=== PATIENT | female | born 1940 | race African-American/Black ===

== ENCOUNTER 2016-10-19 05:13 | Inpatient (IN) | payer MEDICARE, OTHER ==
--- NOTE | ~2016-10-19 | CO ---
Unit #: [id number] #: [id number] Patient: JAILENE KUHN [id number] [facility] [address] [place], [place] [address] [id number] MR#: [id number] NAME: JAILENE KUHN ROOM: 551 Age: 75 Sex: F Admission Date: 10/19/2016 : 1940 Attending Physician: Toby Reyna M.D. Primary Care Physician: Kelly Pelaez M.D. Consultation Date: 10/25/2016 CONSULTATION REPORT REASON FOR CONSULTATION Confusion, agitation. HISTORY OF PRESENT ILLNESS Ms. Jailene Kuhn is a 75-year-old -Burmese female seen on 10/25/2016 at [facility] in room 551. Patient was pleasant, cooperative, seems somewhat anxious, nervous, having some trouble breathing, receiving oxygen through nasal cannula. Patient was lying in the propped-up position. Patient's family was at the bedside. Patient was alert, oriented in time, place and person but having periods of agitation. Patient is also having trouble sleeping but receiving trazodone. Patient was admitted with shortness of air and tachycardia, COPD exacerbation. Patient denied any current suicidal or homicidal ideation, denied any psychotic symptom. PAST PSYCHIATRIC HISTORY Unremarkable except for trouble sleeping. MEDICAL HISTORY AND MEDICATION HISTORY Remarkable for history of COPD, coronary artery disease, hypertension, hyperlipidemia, diabetes type 2, TIA times 2, COPD oxygen dependent, GERD, esophageal stricture. MEDICATIONS Patient is on: 1. Lisinopril 2. Famotidine 3. Diltiazem 4. Metformin 5. Zyrtec 6. Ipratropium bromide 7. Sucralfate 8. Colace 9. Lantus 10. Trazodone 50 mg at bedtime Please refer to the MAR for details. FAMILY HISTORY AND SOCIAL HISTORY Patient reported that she lives by herself and has good support from the family, who lives a block from her. Patient denied any history of abuse or any history of any use of drugs or alcohol. REVIEW OF SYSTEMS Unit #: [id number] #: [id number] Patient: JAILENE KUHN Complete review of system is remarkable for anxiety, agitation. Complete review of systems is as above. MENTAL STATUS EXAMINATION GENERAL APPEARANCE: Patient dressed in hospital attire, receiving oxygen through nasal cannula, lying comfortably, seemed anxious/nervous. ATTENTION SPAN AND CONCENTRATION: Fair. SPEECH: Regular rate. ORIENTATION: Time, place and person. MOOD AND AFFECT: Sad, dysphoric. THOUGHT PROCESS: Coherent. THOUGHT CONTENT: Patient denied any thoughts of harming self or others, but guarded. RECENT AND REMOTE MEMORY: Fair. LANGUAGE: Able to name objects, repeat phrases. FUND OF KNOWLEDGE: Fair. INSIGHT AND JUDGMENT: Fair to slightly impaired. DIAGNOSES 1. Psychiatric a. Major depressive disorder, recurrent, moderate, F33.2 b. Anxiety disorder, not otherwise specified, F41.9 2. Secondary diagnosis: Deferred. 3. Medical diagnosis: Please refer to H and P. 4. Stressors: Psychosocial stressors. ASSESSMENT/PLAN 1. Supportive psychotherapy and psychoeducation provided to patient. 2. Educated about benefits and side effects of medication and course and prognosis of illness. 3. Advised to continue with the trazodone 50 mg at bedtime and add Risperdal 0.25 mg twice daily for the above-mentioned symptom. We will continue to follow. If you need to consider medication such as SSRI, we will continue to follow. Please feel free to call with any questions, telephone number . Dictated by... Guru Lopez/abbey TD: 10/26/2016 02:38 JOB #: [id number] Unit #: [id number] #: [id number] Patient: LUCEROTERRYH CONSULTATION REPORT Page 1 of 1 X Subhash Bravo MD X CONSULTATION REPORT
--- NOTE | ~2016-10-19 | CR72 ---
[facility] A Service of [facility] RADIOLOGY TEXT RESULTS PATIENT: MARY JO BARKER LOCATION: [place] [address]- : [birth year] UNIT #: [id number] AGE: [address]: Aldo Reyna MD SEX: F ORDER DR: [id number] [facility] [address] [place], [place] [address] [id number] I MR#: [id number] Acc #: [id number] NAME: MARY JO BARKER : 1940 SEX: F STUDY DATE/TIME: 10/21/2016 12:42 UNIT: [facility] ROOM: [facility] STUDY DESCRIPTION: CR Chest Single View Portable Attending Physician: Toby Reyna M.D. Ordering Physician: Flavio Turcios M.D. Primary Care Physician: Kelly Pelaez M.D. MEDICAL IMAGING REPORT This report is preliminary unless electronic signature is present EXAM Single view of the chest dated 10/21/2016. COMPARISON Single view chest dated 10/19/2016. HISTORY Central line placement. FINDINGS Single view of the chest was obtained. Interval new right IJ approach central line is noted with the tip in the region of the cavoatrial junction. Patient is tilted and rotated limiting evaluation. Catheter extends close to the right atrium. Patchy alveolar infiltrate and consolidation is noted in the right infrahilar lower lung zone, stable. Borderline size to mild cardiac enlargement. No obvious pleural effusion or pneumothorax. Dictated by... Aditya Nickerson M.D. THIS IS AN ELECTRONICALLY VERIFIED REPORT Aditya Nickerson M.D. at 10/23/2016 1:49 PM CPR/tmw TD: 10/21/2016 14:38 JOB #: [id number] MEDICAL IMAGING REPORT Page 1 of 1 COPY
--- NOTE | ~2016-10-19 | CO ---
Unit #: [id number] #: [id number] Patient: MARY JO BARKER [id number] [place] [id number] [facility] [place], [place] [address] [id number] I MR#: [id number] NAME: MARY JO BARKER ROOM: 55 Age: 75 Sex: F Admission Date: 10/19/2016 : 1940 Attending Physician: Toby Reyna M.D. Primary Care Physician: Kelly Pelaez M.D. Consultation Date: 10/21/2016 CONSULTATION REPORT REASON FOR CONSULTATION Atrial fibrillation. HISTORY OF PRESENT ILLNESS The patient is a 75-year-old -Cymro female known to Dr. Duarte. The patient had a cardiac catheterization in 2012, which showed nonobstructive coronary artery disease with a LV EF of 60%. The LAD showed luminal irregularities and third diagonal branch with 50% stenosis. Left circumflex showed mild luminal irregularities. Large marginal branch showed 20% to 30% stenosis. The RCA was small with mild luminal irregularities. On January 02, 2014, the patient had a 2D echocardiogram which showed an EF of 50% to 55%, mild MR and TR. Her RSVP was 30-40 mmHg. Additional past medical history includes: Hypertension, hyperlipidemia, insulin-dependent diabetes, COPD, TIA x2, GERD, esophageal strictures with dilatation. She is a reformed smoker. She wears oxygen at night. The patient presented to the emergency department with complaints of worsening shortness of air, chest pressure from coughing, and low-grade fevers. In the ER, chest x-ray showed significant pneumonia. The patient has been treated with antibiotics. Cardiology has been consulted for new-onset atrial fibrillation with RVR. During my examination, the patient denied nausea, vomiting, or fever. She did endorse chills. She endorses chest pain that was associated with a cough. She denied any pain that radiated to her arms, neck, back, or jaw. She does endorse a cough. EKG shows new-onset atrial fibrillation with RVR and cardiology has been consulted. PAST MEDICAL HISTORY 1. Coronary artery disease, status post cardiac catheterization on October 11, [address] Duarte at [facility]. This revealed: a. Left main: Normal. b. Left anterior descending artery with luminal irregularities, diagonal 50% stenosis. c. Proximal left circumflex with 30% stenosis. d. Right coronary artery small with luminal irregularities. e. Left ventricular ejection fraction is 60%. 2. A 2D echocardiogram on January 02, 2014, showed an EF of 50% to 55%. Mild septal hypokinesis. Mild left ventricular hypertrophy. Mild mitral and tricuspid regurgitation. RSVP 30-40 mmHg. 3. Hypertension. 4. Hyperlipidemia. 5. Diabetes type 2. 6. TIA x2. 7. COPD with O2 dependency. Unit #: [id number] #: [id number] Patient: MARY JO BARKER 8. Esophageal stricture, status post dilatation. 9. GERD. 10. Reformed smoker. PAST SURGICAL HISTORY 1. Cardiac cath. 2. Cyst removal from breast. 3. Lung surgery in 1967, details unknown. 4. EGD with esophageal dilatation. ALLERGIES Penicillin, sulfa, codeine, and clarithromycin. HOME MEDICATIONS 1. Lisinopril 5 mg p.o. daily. 2. Famotidine 20 mg p.o. b.i.d. 3. Diltiazem 24-HR ER 120 mg p.o. b.i.d. 4. Metformin 500 mg p.o. b.i.d. 5. Zyrtec 10 mg p.o. daily. 6. Ipratropium bromide 0.2 mg neb q.4 times daily. 7. Perforomist one puff inhalation daily. 8. Sucralfate 1 g p.o. three times daily. 9. Colace 100 mg p.o. b.i.d. 10. Lantus SoloStar 30 units subcutaneous every morning. 11. Humalog Kwikpen 5 units subcutaneous three times a day before meals. 12. Megestrol Acetate 20 mg p.o. daily. 13. Pioglitazone 15 mg p.o. daily. 14. Ipratropium albuterol 0.5/3 mL Mini nebs four times daily. FAMILY HISTORY Patient reports that her mother of cancer at the age of 85 and also had heart issues. Her father worked in a coal mine and of lung disease. SOCIAL HISTORY The patient is a reformed smoker who quit smoking in 1968. There are no reports of alcohol or illicit drug abuse. REVIEW OF SYSTEMS A 10-point review of systems has been done and is considered otherwise negative unless indicated in the HPI. PHYSICAL EXAMINATION GENERAL: The patient is awake, alert and in mild distress. VITAL SIGNS: Temperature 98, heart rate 135, respirations 18, blood pressure 147/87. She is oxygenating 98%. HEENT: Head is atraumatic, normocephalic. Pupils equal, round, and reactive. Extraocular movements are intact. No drainage from ears or nares. NECK: Supple. Trachea is midline. Normal carotid upstrokes. No thyromegaly or lymphadenopathy is appreciated. CHEST: Rhonchi bilaterally. No wheezes. CARDIOVASCULAR: Irregular. No murmurs, rubs, or gallops appreciated. ABDOMEN: Soft, nontender, nondistended. Bowel sounds are present in all four quadrants. No hepatosplenomegaly is appreciated. SKIN: Appears to be warm, dry, intact without any unusual rashes or lesions. EXTREMITIES: No clubbing or cyanosis. She has trace bilateral lower Unit #: [id number] #: [id number] Patient: MARY JO BARKER extremity edema. NEUROLOGIC: She is alert and oriented x2 to 3. No focal deficits. Cranial nerves II-XII appear to be intact. DIAGNOSTIC STUDIES LABORATORY: White blood cells 36.6, hemoglobin 10.9, hematocrit 34.3, platelets 237,000. Sodium 135, potassium 3.8, chloride 104, CO2 of 22, BUN 19, creatinine 0.5, glucose 133. Magnesium 1.9. CARDIOVASCULAR: EKG shows atrial fibrillation with rapid ventricular rate. ASSESSMENT 1. New-onset atrial fibrillation with rapid ventricular response. 2. Nonobstructive coronary artery disease per catheterization in 2012. 3. Atypical chest pain associated with cough. 4. Hypertension. 5. Hyperlipidemia. 6. EF of 50% to 55% per echocardiogram in 2013. 7. Mild mitral regurgitation and tricuspid regurgitation. 8. Mild pulmonary hypertension. 9. Diabetes. 10. Hospital-associated pneumonia versus aspiration pneumonia. 11. Acute hypoxic respiratory failure. 12. Acute chronic obstructive pulmonary disease exacerbation with O2 dependency. PLAN 1. At this time, will check BMP, magnesium, TSH, lipid panel, CBC in the morning. 2. Will check an EKG in the morning. 3. Will obtain a 2D echocardiogram regarding her atrial fibrillation. 4. Will check cardiac enzymes and troponin q.6 hours x2. 5. Will ask speech therapy to evaluate the patient to rule out aspiration. 6. Will give the patient metoprolol 25 mg p.o. b.i.d. 7. Will do a chest x-ray now to verify central line placement and to assess the heart and lungs. 8. Will give the patient IV amiodarone 150 mg IV STAT followed by 1 mg a minute x6 hours followed by 0.5 mg a minute drip. After the amiodarone is started, will ask nursing to discontinue the Cardizem. Dictated by... Myrtle Borden A.P.R.N. for Guru Alex TD: 10/21/2016 13:03 JOB #: [id number] Unit #: [id number] #: [id number] Patient: MARY JO BARKER CONSULTATION REPORT Page 1 of 1 X Myrtle Borden BOROUGH COORDINATOR X CONSULTATION REPORT
--- NOTE | ~2016-10-19 | A ---
[facility] Nutrition Therapy DATE: 10/30/16 Patient: MARY JO BARKER Physician: LAY Address: [address] [address] Room/Bed: [address] [place] [address], Zip: [place] [address] Admit Date: 10/19/16 Date of : 42 Height: 4 9 Weight: 89 40.6 NUTRITIONAL ASSESSMENT: REASON: LOS 75 yo female admitted for SOA PMH: DM, COPD, CAD, pulmonary HTN, h/o TIA x 2, esophageal stricture, GERD, hyperglycemia Anthropometrics: HT: 4'9" Wt: 40.5 kg (89#) BMI: 19.3 Labs: Na+ 134, Cl- 86, Gluc 167, BUN 7, Creat 0.4, Ca++ 8.3, Phos 2.4, POC 365 Meds: Novolog, Phenergan, K, Mg, Levemir, Pepcid I/O & Bowel function: 1177/7, last BM 10/28 Skin Integrity: Red (shelly area), open spot (coccyx), brusie (BUE/abd), scar (L breast/ low abd), no edema noted Assessment: Chart reviewed, events noted. Pt is currently on a mechanical groud + thin liquid diet. Pt reported recent weight loss of ~10#. Pt reports good appetite and consuming ~100% of meals. RD internet project manager encouraged adequate protein/energy intake. Pt reported eating a good amount of protein and ensuring she eats enough. RD internet project manager encouraged Glucerna shakes, pt agreed. Pt stated drinking Glucerna shakes at home, RD internet project manager encouraged continuation of Glucerna shakes after d/c. See recommendations below. Dx: Increased protein needs RT PMH, clinical condition AEB ~10# wt loss, 19.3 BMI. Intervention: 1. Glucerna TID 2. MVI Monitoring, Evaluation and Goals: 1. PO intake; consume >75% of meals and supplements 2. Weight; prevent unintentional weight loss 3. Labs; WNL 4. Skin; promote healing Recommendations: 1. Please order strawberry Glucerna shakes TID w/ meals. 2. Add MVI to pt's current medication regimen to promote healing. [facility] DATE: 10/30/16 Patient: MARY JO BARKER Physician: LAY Address: [address] [address] Room/Bed: [address] [place] [address], Zip: [place] [address] Admit Date: 10/19/16 Date of : 42 Height: 4 9 Weight: 89 40.6 3. Optimize pt's insulin regimen d/t pt's elevated blood glucose levels. Pt is at a mild nutritional risk. RD will f/u per protocol. Respectfully, Nicky Centeno, Supervisor [employer] Ambar Munoz RD, LD Food and Nutritional Services [facility] cc: client file
--- NOTE | ~2016-10-19 | HP ---
Unit #: [id number] #: [id number] Patient: MARY JO KUHN [id number] [place] [id number] [facility]. [place], [place] [address] [id number] MR#: [id number] NAME: MARY JO KUHN ROOM: 551 Age: 75 Sex: F Admission Date: 10/19/2016 : 1940 Attending Physician: Toby Reyna M.D. Primary Care Physician: Kelly Pelaez M.D. HISTORY AND PHYSICAL HISTORY OF PRESENT ILLNESS Ms. Kuhn is a pleasant 75-year-old lady with a history of COPD. The patient now presents with worsening shortness of air, chest pain in the right flank and worsening fevers low grade, low blood pressure. The chest x-ray shows significant pneumonia and the patient is admitted to the hospital for treatment of pneumonia. Her symptoms have been going on for two days. The discomfort is becoming severe especially with coughing. She has chills. She has sweating. She has chest tightness. The cough is productive of brown phlegm. Patient has tachycardia. The patient was recently admitted for COPD exacerbation. PAST MEDICAL HISTORY Past medical history is significant for diabetes mellitus and hyperglycemia, chronic obstructive pulmonary disease on home oxygen at 2 L, history of malnutrition, history of coronary artery disease, sees Dr. Duarte at [place], pulmonary hypertension, right ventricular systolic pressure of 40, history of TIA x2, history of esophageal stricture, history of GERD, history of significant smoking. PAST SURGICAL HISTORY Past surgical history significant for cardiac catheterization, history of cyst removed from breast, EGD and esophageal dilation, remote lung injury. SOCIAL HISTORY She quit smoking in 1968. Patient has no alcohol or illicit drug use, lives by herself. 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 FAMILY HISTORY Significant for cancer, mom having cancer at age 85. ALLERGIES Penicillin, sulfa, codeine, clarithromycin. HOME MEDICATIONS Home medications include: 1. Lisinopril 5 mg daily. 2. Famotidine 20 mg b.i.d. 3. Diltiazem 120 mg b.i.d. 4. Glucophage 500 mg daily. 5. Zyrtec 10 mg daily. 6. Ipratropium bromide neb b.i.d. 7. Perforomist one neb b.i.d. Unit #: [id number] #: [id number] Patient: MARY JO KUHN 8. Sucralfate 1 g p.o. t.i.d. 9. Colace 100 mg p.o. b.i.d. 10. Lantus 30 units subcu q.a.m. 11. Humalog 5 units subcu q.a.c. 12. Megestrol 20 mg daily. 13. Pioglitazone 15 mg daily. PHYSICAL EXAMINATION VITAL SIGNS: Blood pressure 155/80, heart rate 119, respiratory rate 22, temperature 100.1, sating 95% on 3 L nasal cannula. HEENT: Extraocular movements are intact. Pupils equally, round and reactive to light. Head is normocephalic and atraumatic. NECK: Shows no accessory muscle use. LYMPHATIC: There is some lymphadenopathy. CHEST: Shows kind of diffuse squeaky wheezes bilaterally. Decreased breath sounds bilaterally. A few rhonchi. No real crackles. CARDIOVASCULAR EXAM: Tachycardia. ABDOMEN: The abdomen is soft, nontender and nondistended. EXTREMITIES: Show no evidence of edema. ASSESSMENT AND PLAN 1. The patient has healthcare-acquired pneumonia: Will continue antibiotics for that. She has pleuritic chest pain associated with it. 2. History of chronic obstructive pulmonary disease: We are going to continue antibiotics. We will see if we can avoid using steroids if possible. If not, we are going to do a low dose. Patient will be admitted for close observation as well as rehydration which is probably leading to a little bit of renal insufficiency. Dictated by Guru Montenegro TD: 10/20/2016 16:34 JOB #: [id number] HISTORY AND PHYSICAL Page 1 of 1 X Aldo Reyna MD X HISTORY AND PHYSICAL
--- NOTE | ~2016-10-19 | CR72 ---
[facility] A Service of [facility] RADIOLOGY TEXT RESULTS PATIENT: MARY JO BARKER LOCATION: [place] : 42 UNIT #: [id number] AGE: [address]: Aldo Reyna MD SEX: F ORDER DR: [id number] [facility] [address] [place], [place] [address] [id number] MR#: [id number] Acc #: [id number] NAME: MARY JO BARKER : 1940 SEX: F STUDY DATE/TIME: 10/19/2016 6:25 UNIT: [facility] ROOM: STUDY DESCRIPTION: CR Chest Single View Portable Attending Physician: Walter Byrd P.A.-C. Ordering Physician: Walter Byrd P.A.-C. Primary Care Physician: Kelly Pelaez M.D. MEDICAL IMAGING REPORT This report is preliminary unless electronic signature is present EXAM Portable chest 10/19 INDICATIONS Shortness of air, weakness. History of COPD. Symptoms today. FINDINGS AP portable chest is compared with 08/22/2016. Heart size is stable. There is emphysema with some scarring in the left lower lung. There is some new mild right infrahilar atelectasis or infiltrate. No pneumothorax. IMPRESSION Stable emphysema with scarring at the left base. There is new mild right infrahilar atelectasis or infiltrate. Dictated by... Max Echeverria Jr., M.D. THIS IS AN ELECTRONICALLY VERIFIED REPORT Max Echeverria Jr., M.D. at 10/19/2016 10:02 AM BRADLEY/tamela TD: 10/19/2016 07:43 JOB #: [id number] MEDICAL IMAGING REPORT Page 1 of 1 COPY
--- NOTE | ~2016-10-19 | CR72 ---
[facility] A Service of [facility] RADIOLOGY TEXT RESULTS PATIENT: MARY JO BARKER LOCATION: [place] [address] : 42 UNIT #: [id number] AGE: [address]: Aldo Reyna MD SEX: F ORDER DR: [id number] [facility] [address] [place], [place] [address] [id number] I MR#: [id number] Acc #: [id number] NAME: MARY JO BARKER : 1940 SEX: F STUDY DATE/TIME: 10/30/2016 9:49 UNIT: [facility] ROOM: [facility] STUDY DESCRIPTION: CR Chest Single View Portable Attending Physician: Toby Reyna M.D. Ordering Physician: Staff Doctor Not On Primary Care Physician: Kelly Pelaez M.D. MEDICAL IMAGING REPORT This report is preliminary unless electronic signature is present EXAM AP portable chest 10/30/2016 HISTORY 75-year-old female hospital inpatient with sepsis, shortness of air and cough for about 4 days. Follow up cardiopulmonary status. TECHNIQUE AP portable chest x-ray. FINDINGS Dense airspace consolidation present within the medial segment right middle lobe on CT examination 10/26/2016, and chest x-ray 10/21/2016 has improved. There was mild residual infiltrate in the right middle lobe. Continued attention on followup is recommended. Pulmonary emphysema. No visible pleural effusion. Mild cardiomegaly with enlarged central pulmonary arteries. IMPRESSION Improving airspace consolidation in the medial segment right middle lobe. Dictated by... Xu Jauregui M.D. THIS IS AN ELECTRONICALLY VERIFIED REPORT Xu Jauregui M.D. at 10/31/2016 2:04 PM RGW/to TD: 10/30/2016 11:41 JOB #: [id number] MEDICAL IMAGING REPORT [facility] A Service of [facility] RADIOLOGY TEXT RESULTS PATIENT: MARY JO BARKER LOCATION: [place] [address] : 42 UNIT #: [id number] AGE: [address]: Aldo Reyna MD SEX: F ORDER DR: Page 1 of 1 COPY
--- NOTE | ~2016-10-19 | EKG ---
PATIENT: MARY JO BARKER UNIT #: [id number] Ventricular Rate: 127 BPM Atrial Rate: 127 BPM P-R Interval: 116 ms QRS Duration: 72 ms Q-T Interval: 310 ms QTC Calculation(Bezet): 450 ms P [place]: 71 degrees Calculated R [place]: 66 degrees Calculated T [place]: 40 degrees Diagnosis Line: Sinus tachycardia Diagnosis Line: Otherwise normal ECG Diagnosis Line: When compared with ECG of 22-OCT-2016 17:43, Diagnosis Line: (unconfirmed) Diagnosis Line: No significant change was found Diagnosis Line: Confirmed by NIKKI CARL MD ([id number]) on 10/23/2016 Diagnosis Line: 10:41:55 PM INTERPRETING MD: MESERET YODER
--- NOTE | ~2016-10-19 | EKG ---
PATIENT: MARY JO BARKER UNIT #: [id number] Ventricular Rate: 124 BPM Atrial Rate: 124 BPM P-R Interval: 144 ms QRS Duration: 76 ms Q-T Interval: 318 ms QTC Calculation(Bezet): 456 ms P [place]: 72 degrees Calculated R [place]: 52 degrees Calculated T [place]: 40 degrees Diagnosis Line: Sinus tachycardia Diagnosis Line: Otherwise normal ECG Diagnosis Line: When compared with ECG of 23-OCT-2016 04:16, Diagnosis Line: Sinus rhythm has replaced Atrial fibrillation Diagnosis Line: Confirmed by NIKKI CARL MD ([id number]) on 10/24/2016 Diagnosis Line: 10:22:22 PM INTERPRETING MD: MESERET YODER
--- NOTE | ~2016-10-19 | CO ---
Unit #: [id number] #: [id number] Patient: JAILENE KUHN [id number] [address] [address] [id number] I MR#: [id number] NAME: JAILENE KUHN ROOM: 551 Age: 75 Sex: F Admission Date: 10/19/2016 : 1940 Attending Physician: Toby Reyna M.D. Primary Care Physician: Kelly Pelaez M.D. Consultation Date: 10/30/2016 CONSULTATION REPORT REASON FOR CONSULTATION Followup. DISCUSSION Ms. Jailene Kuhn is a 75-year-old female, seen in room 551, bed 1 on 10/30/2016. The patient was sitting comfortably in recliner, receiving oxygen through nasal cannula. The patient's family was at the bedside. The patient was able to identify her family, pleasant, cooperative, no aggression. The patient reports sleeping good, tolerating medication fairly well. Denied any thoughts of harming self or others or any psychotic symptom. Reports anxiety is better. The patient's vital signs; temperature 99.2, pulse 97, respirations 24, blood pressure 123/66, oxygen saturation 100%. REVIEW OF SYSTEMS Complete review of systems is unremarkable. MENTAL STATUS EXAMINATION General appearance, the patient dressed casually in hospital attire, sitting in a recliner, able to answer questions appropriately. Hygiene and grooming, fair. Attention span and concentration, fair. Speech, regular rate. Oriented in time, place, and person. Mood and affect were sad, dysphoric, and anxious. Thought process, coherent. Thought content, the patient denied any thoughts of harming self or others or any psychotic symptom. Reports mood is better, decrease in anxiety. Recent and remote memory, fair to slightly impaired. Language, intact. Fund of knowledge, fair. Insight and judgment, fair to slightly impaired. DIAGNOSES Psychiatric: Major depressive disorder, recurrent, severe, F33.2; anxiety disorder, not otherwise specified, F41.9. ASSESSMENT AND PLAN 1. Supportive psychotherapy and psychoeducation provided to the patient and family. 2. Educated about benefits and side effects of medication and course and prognosis of illness. 3. Advised to continue with current medication. If needed, consider further adjustment of medication. Please feel free to call if any questions, telephone #[phone]. Dictated by... Subhash Bravo M.D. Unit #: [id number] #: [id number] Patient: JAILENE KUHN SABINE/nolberto TD: 10/30/2016 23:30 JOB #: [id number] CONSULTATION REPORT Page 1 of 1 X Subhash Bravo MD X CONSULTATION REPORT
--- NOTE | ~2016-10-19 | EKG ---
PATIENT: MARY JO BARKER UNIT #: [id number] Ventricular Rate: 132 BPM Atrial Rate: 110 BPM QRS Duration: 76 ms Q-T Interval: 244 ms QTC Calculation(Bezet): 361 ms Calculated R [place]: 54 degrees Calculated T [place]: 30 degrees Diagnosis Line: Atrial fibrillation with rapid ventricular Diagnosis Line: response Diagnosis Line: Abnormal ECG Diagnosis Line: When compared with ECG of 19-OCT-2016 04:04, Diagnosis Line: Atrial fibrillation has replaced Sinus rhythm Diagnosis Line: Criteria for Septal infarct are no longer Present Diagnosis Line: Confirmed by NIKKI CARL MD ([id number]) on 10/22/2016 Diagnosis Line: 4:32:13 PM INTERPRETING MD: MESERET YODER
--- NOTE | ~2016-10-19 | EKG ---
PATIENT: MARY JO BARKER UNIT #: [id number] Ventricular Rate: 156 BPM Atrial Rate: 159 BPM QRS Duration: 74 ms Q-T Interval: 284 ms QTC Calculation(Bezet): 457 ms Calculated R [place]: 44 degrees Calculated T [place]: 10 degrees Diagnosis Line: Atrial fibrillation with rapid ventricular Diagnosis Line: response Diagnosis Line: Abnormal ECG Diagnosis Line: No previous ECGs available Diagnosis Line: Confirmed by NIKKI CARL MD ([id number]) on 10/23/2016 Diagnosis Line: 10:49:04 PM INTERPRETING MD: MESERET YODER
--- NOTE | ~2016-10-19 | DS ---
Unit #: [id number] #: [id number] Patient: MARY JO BARKER [id number] [address] [address] [id number] I MR#: [id number] NAME: MARY JO BARKER ROOM: 551 Age: 75 Sex: F Admission Date: 10/19/2016 : 1940 Discharge Date: 10/31/2016 Attending Physician: Toby Reyna M.D. Primary Care Physician: Kelly Pelaez M.D. DISCHARGE SUMMARY ADMIT DIAGNOSIS Chronic obstructive pulmonary disease exacerbation. DISCHARGE DIAGNOSES 1. Chronic obstructive pulmonary disease exacerbation. 2. Healthcare-acquired pneumonia. 3. History of chronic obstructive pulmonary disease. 4. Atrial fibrillation. 5. Therapeutic anticoagulation. 6. Methicillin sensitive Staph aureus pneumonia. 7. Anxiety disorder. 8. Major depressive disorder. 9. Psychosocial stressors. CONSULTANTS 1. Dr. Subhash Bravo - Psych. 2. Dr. Castillo - Infectious Disease. 3. Dr. Jaime - Vascular Surgery. 4. Dr. Turcios/Xavi - Cardiology. Pleasant 75-year-old lady with a history of COPD, now presents with worsening shortness of breath, worsening fevers, low grade, low blood pressure. Chest x-ray shows significant pneumonia. The patient was admitted to the hospital for treatment of community-acquired pneumonia, two days of worsening symptoms, discomfort, especially severe with coughing, chills, sweating, chest tightness, cough productive of brown phlegm. Recent hospitalization for COPD exacerbation two months prior. HOSPITAL COURSE The patient was initially treated for HCAP pneumonia with Azactam, vancomycin and fluoroquinolone due to penicillin allergy. The patient then grew MSSA out of the sputum. She was changed from vancomycin and Azactam to Kefzol. The patient is being discharged on seven days of Kefzol IV, total 14 day course of antibiotics. Atrial fibrillation with rapid ventricular response: The patient was placed on amiodarone, metoprolol, Cardizem by cardiology. Appreciate their input. The patient became more well controlled. The patient was sent home on same medications. Glucose: The patient is diabetic, has actually required increasing doses of insulin as she is being discharged home despite the fact that her dose of steroids is being decreased. I believe this is due to the Kefzol which Unit #: [id number] #: [id number] Patient: MARY JO BARKER is currently being resuspended with D5W. I am going to see if we can get it resuspended in half normal saline. The patient is going to have [facility] give the Kefzol at home. Anxiety: The patient's psychiatric meds have been adjusted by Dr. Bravo. Vascular surgery was required for patient oozing rather significantly from the site of the central line, probably due to coagulopathy. Chronic obstructive pulmonary disease: The patient was on steroids which were slowly weaned down. By the time of discharge, the patient is on 2.5 mg twice a day of oral prednisone. The patient has an area of redness in vaginal area. We are going to start her on fluconazole but I do not want her to be discharged until she is seen by Wound Care. DISCHARGE MEDICATIONS Include: 1. Kefzol 2 g IV in half normal saline rather than in D5W three times a day for seven days, 21 doses. 2. Mag oxide 60 mg p.o. b.i.d. 3. Metoprolol 50 mg p.o. b.i.d. 4. Amiodarone 200 mg daily. 5. Lisinopril 10 mg q. h.s. 6. Prednisone 2 mg p.o. b.i.d. for three days, six tablets, and one tab p.o. daily for three days, that is three tablets for a total of nine tablets. 7. Megestrol 40 mg tablets q. h.s., dispense 30. 8. Risperidone 0.25 mg tablet b.i.d., dispense 60. 9. Tessalon Perles, mg p.r.n. cough every eight hours, #49 tablets. 10. Duo-Nebs q.4 hours p.r.n. 11. Perforomist, one puff inhaled daily. 12. Metformin mg p.o. b.i.d. 13. Pioglitazone 15 mg daily. 14. Zyrtec 10 mg daily. 15. Megace 40 mg daily. 16. Docusate 100 mg twice daily. 17. Glargine 30 units subcu every morning. 18. Lispro insulin pen 5 units subcu a.c. 19. 20 mg p.o. b.i.d. of famotidine. 20. Sucralfate 1 g p.o. t.i.d. 21. Amiodarone 200 mg p.o. daily. 22. Kefzol 2 g q.8 hours x7 days. 23. Mag oxide 400 mg p.o. b.i.d. FOLLOWUP Follow up with [facility] for glucose, for Kefzol, oxygen at 4 L and followup with cardiology in three to four weeks. Follow up with us in approximately two weeks. Dictated by... Toby Reyna M.D. Unit #: [id number] #: [id number] Patient: LUCEROMARY JO BAUMANN/stacey TD: 11/01/2016 08:38 JOB #: [id number] DISCHARGE SUMMARY Page 1 of 1 X Aldo Reyna MD X DISCHARGE SUMMARY
--- NOTE | ~2016-10-19 | EKG ---
PATIENT: MARY JO BARKER UNIT #: [id number] Ventricular Rate: 103 BPM Atrial Rate: 103 BPM P-R Interval: 118 ms QRS Duration: 70 ms Q-T Interval: 334 ms QTC Calculation(Bezet): 437 ms P [place]: 72 degrees Calculated R [place]: 68 degrees Calculated T [place]: 58 degrees Diagnosis Line: Sinus tachycardia Diagnosis Line: Septal infarct , age undetermined Diagnosis Line: Abnormal ECG Diagnosis Line: When compared with ECG of 21-OCT-2016 14:45, Diagnosis Line: (unconfirmed) Diagnosis Line: Septal infarct is now Present Diagnosis Line: ST no longer elevated in Anterior leads Diagnosis Line: Confirmed by INKKI CARL MD ([id number]) on 10/22/2016 Diagnosis Line: 4:44:48 PM INTERPRETING MD: MESERET YODER
--- NOTE | ~2016-10-19 | EKG ---
PATIENT: AMRY JO BARKER UNIT #: [id number] Ventricular Rate: 120 BPM Atrial Rate: 120 BPM P-R Interval: 98 ms QRS Duration: 70 ms Q-T Interval: 292 ms QTC Calculation(Bezet): 412 ms P [place]: 85 degrees Calculated R [place]: 30 degrees Calculated T [place]: 65 degrees Diagnosis Line: Sinus tachycardia with short [place] Diagnosis Line: Septal infarct , age undetermined Diagnosis Line: Abnormal ECG Diagnosis Line: No previous ECGs available Diagnosis Line: Confirmed by NIKKI CARL MD ([id number]) on 10/20/2016 Diagnosis Line: 6:59:09 PM INTERPRETING MD: MESERET YODER
--- NOTE | ~2016-10-19 | CT2 ---
[facility] A Service of [facility] RADIOLOGY TEXT RESULTS PATIENT: MARY JO BARKER LOCATION: [facility] : 42 UNIT #: [id number] AGE: [address]: Aldo Reyna MD SEX: F ORDER DR: [id number] [facility] [address] [place], [place] [address] [id number] I MR#: [id number] Acc #: [id number] NAME: MARY JO BARKER : 1940 SEX: F STUDY DATE/TIME: 10/26/2016 18:55 UNIT: B ROOM: [facility] STUDY DESCRIPTION: CT Abd and Pelv W Cont Ordering Physician: Jose Castillo M.D. Primary Care Physician: Kelly Pelaez M.D. MEDICAL IMAGING REPORT This report is preliminary unless electronic signature is present EXAM CT abdomen and pelvis HISTORY Shortness of air, cough today, possible sepsis. History of emphysema. TECHNIQUE Axial images performed through the abdomen and pelvis following IV and oral contrast. This CT exam was performed with one or more of the following radiation dose reduction techniques: automatic exposure control, adjustment of mA and/or kV according to patient size, and iterative reconstruction. FINDINGS ABDOMEN: The examination demonstrates multifocal parenchymal opacities right lung base involving the right middle lobe medially and also the right lower lobe. Differential would include both benign as well as malignant processes. Recommend clinical and radiographic follow up to resolution. In the setting of apparent sepsis, this probably represents multifocal pneumonia. Liver, spleen and gallbladder appear normal. Pancreas and kidneys and adrenal glands unremarkable, except for several renal cortical cysts. There is a complex cyst posterior aspect right kidney, may contain a small amount calcification. The stomach, small bowel and colon unremarkable. Retroperitoneum unremarkable, except for atherosclerotic changes. PELVIS: Bladder is distended. The uterus, osseous structures, soft tissues unremarkable. IMPRESSION Extensive airspace opacity medial segment right middle lobe as well as [facility] A Service of [facility] RADIOLOGY TEXT RESULTS PATIENT: MARY JO BARKER LOCATION: [facility] : 42 UNIT #: [id number] AGE: [address]: Aldo Reyna MD SEX: F ORDER DR: patchy areas medial right lung base and posterior right lung base. I suspect this represents multifocal pneumonia, however recommend clinical and radiographic follow up to resolution. Please see separate chest CT report for any additional details. Dictated by... Masha Funez M.D. THIS IS AN ELECTRONICALLY VERIFIED REPORT Masha Funez M.D. at 10/27/2016 6:36 PM Lindsey TD: 10/26/2016 23:28 JOB #: [id number] MEDICAL IMAGING REPORT Page 1 of 1 COPY
--- NOTE | ~2016-10-19 | CO ---
Unit #: [id number] #: [id number] Patient: JAILENE KUHN [id number] [place] [id number] [place], [place] [address] [id number] I MR#: [id number] NAME: JAILENE KUHN ROOM: 551 Age: 75 Sex: F Admission Date: 10/19/2016 : 1940 Attending Physician: Toby Reyna M.D. Primary Care Physician: Kelly Pelaez M.D. Consultation Date: 10/27/2016 CONSULTATION REPORT REASON FOR CONSULTATION Followup. DISCUSSION Ms. Jailene Kuhn is a 75-year-old female, seen in room 551, bed 1, at [facility] on 10/27/2016. The patient was sitting comfortably in recliner, able to identify family members in the room, pleasant, cooperative. Reports sleeping good. Reports medication is helping her, but still having problem with the anxiety. Denied any suicidal or homicidal ideation. REVIEW OF SYSTEMS Complete review of system is unremarkable except for shortness of air. MENTAL STATUS EXAMINATION General appearance, the patient dressed casually. The patient's vital signs temperature 98.0, heart rate 93, respirations 18, blood pressure 149/83, oxygen saturation 100%. Receiving oxygen through nasal cannula. Attention span and concentration, fair. Speech, slow. Oriented in place and person. Mood and affect, labile. Thought process, circumstantial. Thought content, the patient denied any thoughts of harming self or others. Recent and remote memory, fair. Language, fair. Insight and judgment, fair to slightly impaired. DIAGNOSES Psychiatric: Major depressive disorder, recurrent, severe, F33.2; anxiety disorder, not otherwise specified F41.9. ASSESSMENT AND PLAN 1. Supportive psychotherapy and psychoeducation provided to the patient. 2. Educated about benefits and side effects of medication and course and prognosis of illness. 3. Advised to continue with current medication, combination of Risperdal and trazodone. Please feel free to call if any questions, telephone #[phone]. Dictated by... Subhash Bravo M.D. SABINE/nolberto TD: 10/28/2016 06:13 JOB #: [id number] Unit #: [id number] #: [id number] Patient: JAILENE KUHN CONSULTATION REPORT Page 1 of 1 X Subhash Bravo MD CONSULTATION REPORT
--- NOTE | ~2016-10-19 | CO ---
Unit #: [id number] #: [id number] Patient: MARY JO BARKER [id number] [address] [address] [id number] I MR#: [id number] NAME: MARY JO BARKER ROOM: 551 Age: 75 Sex: F Admission Date: 10/19/2016 : 1940 Attending Physician: Tboy Reyna M.D. Primary Care Physician: Kelly Pelaez M.D. Consultation Date: 10/24/2016 CONSULTATION REPORT REASON FOR CONSULTATION Antibiotic management. HISTORY OF PRESENT ILLNESS This is a 75-year-old female with a history of COPD but has had no recent tobacco abuse. Per the family, she is admitted with pneumonia type symptoms approximately one time per year. The patient now is admitted with several day history of shortness of air, cough and pain without significant fever. The patient was found to have pneumonia and leukocytosis with a sputum culture for MSSA. ID was asked to evaluate for antibiotic management as patient has a reported history of a penicillin allergy. The patient is somewhat quiet and does not give a lot of significant history but her family is at the bedside who assists with her history. Per the family, they are unaware if she has ever taken Keflex or Omnicef in the past. They report that she has hives and rash with penicillin that she has taken as adult. PAST MEDICAL HISTORY Includes: 1. Diabetes. 2. Hyperglycemia. 3. COPD with home oxygen use. 4. Malnutrition. 5. Coronary artery disease. 6. Pulmonary hypertension. 7. TIA x2. 8. Esophageal stricture. 9. GERD. 10. Past tobacco. PAST SURGICAL HISTORY Includes: 1. Cardiac cath. 2. Cyst removal of the breast. 3. EGD. 4. Esophageal dilatation. Remote lung injury. SOCIAL HISTORY Past tobacco, none since 1968. No alcohol or other drug use. She lives with others and she is able to care for herself at home. ALLERGIES Penicillin which causes rash and hives. Sulfa, codeine and Unit #: [id number] #: [id number] Patient: MARY JO BARKER clarithromycin. MEDICATIONS The patient is currently on vancomycin. For other medications pleas refer to patient's MAR. It is noted that patient is on amiodarone. PHYSICAL EXAMINATION VITAL SIGNS: Temperature 98.5 with a T-max since admission of 100.1, pulse of 72, blood pressure is 94/46 and respiratory rate is 20. GENERAL: This is a quiet female who is resting in the bed comfortably. HEENT/NECK: Her pupils are equal. Her neck is supple. CARDIOVASCULAR: S1, S2. Regular rate and rhythm. PULMONARY: Rhonchi with expiratory wheezes bilaterally throughout. ABDOMEN: Positive bowel sounds. Soft and nontender. EXTREMITIES: No clubbing, cyanosis and trace edema. She has an IJ line in place. DIAGNOSTIC STUDIES LABORATORY: BUN 12, creatinine 0.4, sodium 136, potassium 3.2, chloride 93, CO2 35, bilirubin is 0.5, AST 22, ALT is 18. White blood cell count is 29.3 which is improved from admission of 27.4. However, her peak while in the hospital was 41. Hemoglobin 8.5, hematocrit 26.1, platelets 261. Blood cultures currently negative. Sputum culture shows MSSA sensitive to oxacillin, Bactrim and doxycycline. IMAGING: Ultrasound shows no DVT. 10/21 chest film shows patchy alveolar infiltrate and consolidation in the right lower lobe. IMPRESSION This is a 75-year-old female with a history of chronic obstructive pulmonary disease with no recent tobacco abuse, admitted with shortness of air, pain and cough, found to have leukocytosis, right side pneumonia and MSSA as the pathogen. At this time, patient is noted to have a penicillin allergy as well as a sulfa allergy. The patient is unaware if she has ever taken a cephalosporin. At this time, will continue vancomycin and DC Azactam. Will ask the staff to call her home pharmacy to see if she has ever taken a cephalosporin. The patient is not able to take Levaquin due to her use with amiodarone and recent A-fib with RVR. Patient's other option may be doxycycline. It has been discussed with the family that the vancomycin can be toxic on her kidneys but we will try to find an alternative option as well. This case will be discussed with Dr. Jose Castillo. Thank you for allowing us to participate in the care of this patient and further recommendations to follow pending patient's clinical course. Dictated by... Kiko Ferrell.P.R.N. for Jose Castillo M.D. TYRESE/stcaey Unit #: [id number] #: [id number] Patient: MARY JO BARKER TD: 10/24/2016 09:15 JOB #: [id number] CONSULTATION REPORT Page 1 of 1 X X CONSULTATION REPORT
--- NOTE | ~2016-10-19 | CO ---
Unit #: [id number] #: [id number] Patient: JAILENE KUHN [id number] [address] [address] [id number] I MR#: [id number] NAME: JAILENE KUHN ROOM: 551 Age: 75 Sex: F Admission Date: 10/19/2016 : 1940 Attending Physician: Toby Reyna M.D. Primary Care Physician: Kelly Pelaez M.D. Consultation Date: 10/26/2016 CONSULTATION REPORT REASON FOR CONSULTATION Followup. DISCUSSION Ms. Jailene Kuhn is a 75-year-old female, seen in room 551, bed 1 on 10/26/2016. The patient reports her anxiety is better, decrease in anxiety and agitation. Sleeping better. The patient reports medication is helping her. Currently on Risperdal and trazodone. The patient's mood is better, no aggression. REVIEW OF SYSTEMS Complete review of systems is unremarkable. MENTAL STATUS EXAMINATION General appearance; the patient dressed casually, receiving oxygen through nasal cannula, compliant, cooperative, redirectable, made good eye contact, able to answer questions appropriately. Attention span and concentration, fair. Speech, regular rate. Oriented in time, place, and person. Mood and affect were sad and dysphoric, but able to smile. Thought process, coherent. Thought content, the patient denied any thoughts of harming self or others or any psychotic symptom. Recent and remote memory, fair. Language, intact. Fund of knowledge, fair. Insight and judgment, fair to slightly impaired. DIAGNOSES Psychiatric: Major depressive disorder, recurrent, F33.2; anxiety disorder, not otherwise specified. ASSESSMENT AND PLAN Supportive psychotherapy and psychoeducation provided to patient and family. Advised to continue with current medication. If needed, consider further adjustment of medication. Please feel free to call if any question, telephone #[phone]. Dictated by... Subhash Bravo M.D. SABINE/nolberto TD: 10/28/2016 04:28 JOB #: [id number] Unit #: [id number] #: [id number] Patient: JAILENE KUHN CONSULTATION REPORT Page 1 of 1 X Subhash Bravo MD CONSULTATION REPORT
--- NOTE | ~2016-10-19 | US139 ---
[facility] A Service of [facility] RADIOLOGY TEXT RESULTS PATIENT: MARY JO BARKER LOCATION: [place] [address] : 42 UNIT #: [id number] AGE: [address]: Aldo Reyna MD SEX: F ORDER DR: [id number] [facility] [address] [place], [place] [address] [id number] I MR#: [id number] Acc #: [id number] NAME: MARY JO BARKER : 1940 SEX: F STUDY DATE/TIME: 10/23/2016 16:50 UNIT: [facility] ROOM: [facility] STUDY DESCRIPTION: US UE Veins Complete Kevin Stdy Attending Physician: Toby Reyna M.D. Ordering Physician: Toby Reyna M.D. Primary Care Physician: Kelly Pelaez M.D. MEDICAL IMAGING REPORT This report is preliminary unless electronic signature is present EXAM Upper extremity ultrasound for DVT bilateral 10/23/2016 INDICATIONS Bilateral upper extremity swelling for 2 days, blood thinners in use. History of DVT. Sonographic imaging of the upper extremities was performed bilaterally using atkinson-scale, color Doppler and spectral analysis. COMPARISON STUDIES No comparisons FINDINGS There is no evidence of DVT in either upper extremity. However on the right, the cephalic vein at the level of the antecubital fossa demonstrates no flow within it and is noncompressible most characteristic of superficial venous thrombosis. IMPRESSION 1. No DVT in either upper extremity. 2. Findings most characteristic of superficial venous thrombus within the right cephalic vein at the level of the antecubital fossa. STAT * RESULT Dictated by... Alfonso Lynch M.D. THIS IS AN ELECTRONICALLY VERIFIED REPORT Alfonso Lynch M.D. at 10/23/2016 7:50 PM [facility] A Service of [facility] RADIOLOGY TEXT RESULTS PATIENT: MARY JO BARKER LOCATION: [facility] 551-01 : [birth year] UNIT #: [id number] AGE: [address]: Aldo Reyna MD SEX: F ORDER DR: Alfredo TD: 10/23/2016 17:53 JOB #: [id number] MEDICAL IMAGING REPORT Page 1 of 1 COPY
--- NOTE | ~2016-10-19 | CO ---
Unit #: [id number] #: [id number] Patient: MARY JO BARKER [id number] [address] [place], [place] [address] [id number] MR#: [id number] NAME: MARY JO BARKER ROOM: 551 Age: 75 Sex: F Admission Date: 10/19/2016 : 1940 Attending Physician: Aldo Reyna Primary Care Physician: Kelly Pelaez M.D. CONSULTATION REPORT REASON FOR CONSULTATION Bleeding from neck, status post central line placement. HISTORY OF PRESENT ILLNESS This is a very pleasant 75-year-old lady with a history of COPD, who was admitted for pulmonary issues as well as new-onset atrial fibrillation with RVR. She had a central line placed via her right IJ yesterday. Per nursing report and her family, she has had persistent oozing from her right neck, despite manual pressure and placement of pressure dressings. The patient denies any history of any bleeding disorders or clotting disorders. Per the nurse, she is not on any additional anticoagulation, though she was on Lovenox. The patient denies any significant right neck pain. She denies any worsening ability to breathe above her baseline from admission. She denies any chest pain, fevers, or chills. PAST MEDICAL HISTORY Includes diabetes; hyperglycemia; COPD with home oxygen dependence; malnutrition; coronary artery disease; pulmonary hypertension; history of TIAs; esophageal stricture; history of GERD and has tobacco history. PAST SURGICAL HISTORY Includes cardiac cath; removal of a cyst from her breast; EGD and esophageal dilatation and lung surgery in 1967. SOCIAL HISTORY Includes former smoker, but quit in 1968. 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 FAMILY HISTORY Denies any known bleeding source, clotting disorders, or aneurysms. ALLERGIES Penicillin, sulfa, codeine, clarithromycin. HOME MEDICATIONS Include lisinopril, famotidine, diltiazem, Glucophage, Zyrtec, ipratropium bromide, Perforomist, sucralfate, Colace, Lantus, Humalog, megestrol, pioglitazone. REVIEW OF SYSTEMS CONSTITUTIONAL: Denies any fevers or chills. ENT: Denies any ear pain or tinnitus. RESPIRATIONS: Positive for shortness of breath. Positive for cough. CARDIOVASCULAR: Negative for chest pain. Negative for palpitations. Unit #: [id number] #: [id number] Patient: MARY JO BARKER GI: Denies any nausea, vomiting, or diarrhea. : Negative for hematuria. HEME: Positive for easy bruising. ENDOCRINE: Denies any excessive thirst or hunger. MUSCULOSKELETAL: Denies any back pain or neck pain. INTEGUMENTARY: Denies any rash or pruritus. PHYSICAL EXAMINATION VITAL SIGNS: Temperature 99.2, heart rate 70, blood pressure 147/62, respirations 16, oxygen saturation 100% on 15 L. CONSTITUTIONAL: Mild distress. EYES: No scleral icterus. NECK: No JVD, no carotid bruit, no hematoma. Saturated dressings; once removed, it shows slight ooze from access site of the central line. LYMPH: No lymphadenopathy in the neck or groins. CARDIOVASCULAR: Irregularly irregular. RESPIRATIONS: Nonlabored. GI. The abdomen is soft, nontender, nondistended. SKIN: No rashes or ulcerations. PSYCH: Normal mood and affect. DIAGNOSTIC STUDIES LABORATORY RESULTS: WBCs 41.1, hematocrit is 34.1, platelets 283. Sodium is 135, potassium is 3.8, chloride is 102, CO2 is 25, BUN is 22, creatinine 0.4, glucose 187. IMAGING STUDIES: Chest x-ray demonstrates a right IJ central line in the SVC-RA junction. ASSESSMENT AND PLAN Right neck bleeding, status post right internal jugular central line placement. I took down the dressing and it appeared that there was kinking of the catheter, which may have been keeping the internal jugular open enough for some slight oozing. She had no significant bleeding. Given the amount of blood, I was potentially concerned for potential carotid injury. However when all 3 lumens were elevated to gravity, there was no pulsatile flow noted within the catheters. In addition, when aspirated, the blood appeared venous. I placed a U-stitch around the access site. In addition, I held manual pressure for approximately 25 minutes. At the end of this 25 minutes and with the usage, no active bleeding or oozing was noted from the neck. I sutured the catheter back into place. I then cleaned the central line with chlorhexidine and placed a sterile dressing. I did tell the nurses, because the patient was planned to have a midline for IV access, that the central line should not be removed tonight, but if needed, it could be removed tomorrow. It does present itself to be a little bit higher risk, with all the excessive manipulation today, especially given the fact that it was sitting and saturated dressings throughout the day. So ideally, it could be removed. If it is removed at the bedside, manual pressure should be held for probably 20 to 30 minutes. If continues to ooze, please contact the Vascular Surgery office, and we will likely place another bedside skin stitch. Dictated by... Jeff Jaime M.D. Unit #: [id number] #: [id number] Patient: LUCEROMARY JO RAMIREZ/nolberto TD: 10/23/2016 02:18 JOB #: [id number] CONSULTATION REPORT Page 1 of 1 X X CONSULTATION REPORT
--- NOTE | ~2016-10-19 | CT55 ---
[facility] A Service of [facility] & [facility] RADIOLOGY TEXT RESULTS PATIENT: MARY JO BARKER LOCATION: [facility] 55-01 : 42 UNIT #: [id number] AGE: [address]: Aldo Reyna MD SEX: F ORDER DR: [id number] [facility] [address] [place], [place] [address] [id number] I MR#: [id number] Acc #: [id number] NAME: MARY JO BARKER : 1940 SEX: F STUDY DATE/TIME: 10/26/2016 18:55 UNIT: [facility] ROOM: [facility] STUDY DESCRIPTION: CT Chest W Con Attending Physician: Toby Reyna M.D. Ordering Physician: Jose Castillo M.D. Primary Care Physician: Kelly Pelaez M.D. MEDICAL IMAGING REPORT This report is preliminary unless electronic signature is present EXAM CT chest with contrast HISTORY Questionable sepsis, patient with emphysema, shortness of air and cough onset today. FINDINGS Axial images performed through the chest following IV contrast. 3-D coronal and sagittal reconstructed images reviewed at a workstation. This CT exam was performed with one or more of the following radiation dose reduction techniques: Automatic exposure control, adjustment of mA and/or kV according to patient size, and iterative reconstruction. There is extensive airspace disease and consolidation medial segment right middle lobe as well as some patchy areas of airspace disease and consolidation right lower lobe, particularly medial segment. This most likely represents acute infectious pneumonia, but recommend clinical and imaging followup to resolution. There is also a focal area of alveolitis in the posterior aspect left upper lobe. There is extensive emphysematous changes. No effusions. Normal enhancement of the pulmonary arteries. Heart and aorta unremarkable. No adenopathy. Thoracic inlet, extrathoracic soft tissues appear normal. IMPRESSION 1. Extensive parenchymal consolidation medial segment right middle lobe most likely represents acute infectious pneumonia but recommend clinical and imaging followup to resolution. There is additional areas of infiltrate right middle lobe and also within the right lower lobe. An additional area of alveolitis is also seen within the posterior aspect left upper lobe. 2. No evidence of pulmonary embolus. [facility]. [facility] A Service of [facility] & [facility] RADIOLOGY TEXT RESULTS PATIENT: MARY JO BARKER LOCATION: [facility] 551-01 : 44 UNIT #: [id number] AGE: [address]: Aldo Reyna MD SEX: F ORDER DR: Dictated by... Masha Funez M.D. THIS IS AN ELECTRONICALLY VERIFIED REPORT Masha Funez M.D. at 10/27/2016 6:36 PM Praveen TD: 10/26/2016 23:42 JOB #: [id number] MEDICAL IMAGING REPORT Page 1 of 1 COPY
--- NOTE | ~2016-10-19 | EKG ---
PATIENT: MARY JO BARKER UNIT #: [id number] Ventricular Rate: 117 BPM Atrial Rate: 117 BPM P-R Interval: 116 ms QRS Duration: 74 ms Q-T Interval: 320 ms QTC Calculation(Bezet): 446 ms P [place]: 62 degrees Calculated R [place]: 69 degrees Calculated T [place]: 45 degrees Diagnosis Line: Sinus tachycardia Diagnosis Line: Otherwise normal ECG Diagnosis Line: When compared with ECG of 22-OCT-2016 06:07, Diagnosis Line: Criteria for Septal infarct are no longer Present Diagnosis Line: Confirmed by NIKKI CARL MD ([id number]) on 10/23/2016 Diagnosis Line: 10:38:31 PM INTERPRETING MD: MESERET YODER
--- NOTE | ~2016-10-19 | EKG ---
PATIENT: MARY JO BARKER UNIT #: [id number] Ventricular Rate: 103 BPM Atrial Rate: 103 BPM P-R Interval: 118 ms QRS Duration: 80 ms Q-T Interval: 326 ms QTC Calculation(Bezet): 427 ms P [place]: 67 degrees Calculated R [place]: 23 degrees Calculated T [place]: 36 degrees Diagnosis Line: Sinus tachycardia Diagnosis Line: Nonspecific ST and T wave abnormality Diagnosis Line: Abnormal ECG Diagnosis Line: When compared with ECG of 21-OCT-2016 07:23, Diagnosis Line: (unconfirmed) Diagnosis Line: Sinus rhythm has replaced Atrial fibrillation Diagnosis Line: Confirmed by NIKKI CARL MD ([id number]) on 10/22/2016 Diagnosis Line: 4:37:41 PM INTERPRETING MD: MESERET YODER
--- NOTE | ~2016-10-19 | CT114 ---
[facility] A Service of [facility] RADIOLOGY TEXT RESULTS PATIENT: MARY JO BARKER LOCATION: [facility] : 42 UNIT #: [id number] AGE: [address]: Aldo Reyna MD SEX: F ORDER DR: [id number] [place] [id number] [facility] [place] [facility]. [place], [place] [address] [id number] I MR#: [id number] Acc #: [id number] NAME: MARY JO BARKER : 1940 SEX: F STUDY DATE/TIME: 10/26/2016 18:55 UNIT: [facility] ROOM: [facility] STUDY DESCRIPTION: CT Soft Tissue Neck W Cont Attending Physician: Toby Reyna M.D. Ordering Physician: Toby Reyna M.D. Primary Care Physician: Kelly Pelaez M.D. MEDICAL IMAGING REPORT This report is preliminary unless electronic signature is present EXAM CT neck with contrast HISTORY Questionable sepsis, emphysema, shortness of air, cough today, difficulty swallowing x2 months. FINDINGS Thin-section axial images performed from the skull base to the alberta following IV contrast. Sagittal and coronal reconstructed images reviewed at a workstation. This CT exam was performed with one or more of the following radiation dose reduction techniques: Automatic exposure control, adjustment of mA and/or kV according to patient size, and iterative reconstruction. The parotid, submandibular and thyroid glands appear normal. No significant lymphadenopathy. Anatomic spaces within the head and neck appear normal. The skull base unremarkable. Paranasal sinuses unremarkable. Upper thorax demonstrates emphysema and small amount of focal alveolitis left upper lobe. Right neck-approach venous catheter noted. IMPRESSION 1. No significant head and neck pathology identified to account for the patient's dysphagia. 2. Dyxxtfws-ok-kqfuzw emphysema with left upper lobe patchy airspace disease. Dictated by.Valentina Funez M.D. THIS IS AN ELECTRONICALLY VERIFIED REPORT [facility] A Service of [facility] RADIOLOGY TEXT RESULTS PATIENT: MARY JO BARKER LOCATION: [facility] : 42 UNIT #: [id number] AGE: [address]: Aldo Reyna MD SEX: F ORDER DR: Masha Funez M.D. at 10/27/2016 6:36 PM ASHLEY/abbey TD: 10/27/2016 00:31 JOB #: [id number] MEDICAL IMAGING REPORT Page 1 of 1 COPY
--- NOTE | ~2016-10-19 | EKG ---
PATIENT: MARY JO BARKER UNIT #: [id number] Ventricular Rate: 108 BPM Atrial Rate: 108 BPM P-R Interval: 180 ms QRS Duration: 82 ms Q-T Interval: 340 ms QTC Calculation(Bezet): 455 ms P [place]: 66 degrees Calculated R [place]: 37 degrees Calculated T [place]: 50 degrees Diagnosis Line: Sinus tachycardia Diagnosis Line: Otherwise normal ECG Diagnosis Line: When compared with ECG of 24-OCT-2016 10:03, Diagnosis Line: No significant change was found Diagnosis Line: Confirmed by NIKKI CARL MD ([id number]) on 10/26/2016 Diagnosis Line: 7:47:54 PM INTERPRETING MD: MESERET YODER
[2016-10-19 04:42] LABS: BASOPHIL% 0.1 % (0-2.5); HEMATOCRIT 40.4 % (35.0-45.0); HEMOGLOBIN 12.8 gm/dL (12.0-16.0); LYMPHOCYTE# 1.3 X10e3 (1.0-3.5); LYMPHOCYTE% 4.6 % (17.0-45.0); MEAN CORPUSCULAR HEMOGLOBIN 27.6 PG (28-34); MEAN CORPUSCULAR HGB CONC 31.7 g/dL (30-36); MEAN PLATELET VOLUME 8.1 FL (6.5-11.5); MONOCYTE# 0.6 X10e3 (0-1.0); MONOCYTE% 2.3 % (3.0-12.0); NEUTROPHIL# 25.5 X10e3 (1.5-7.1); PLATELET COUNT 221 X10e3 (140-420); RED BLOOD COUNT 4.65 X10e (3.90-5.30); RED CELL DISTRIBUTION WIDTH 14.2 % (11.0-15.5); WHITE BLOOD COUNT 27.4 X10e3 (4.0-10.5)
[2016-10-19 04:43] LABS: DIFF IND YES
[2016-10-19 04:57] LABS: ANISOCYTOSIS SL; PLATELET ESTIMATE NORMAL (NORMAL)
[2016-10-19 05:11] LABS: ALBUMIN SERUM 3.9 g/dL (3.5-5.0); BILIRUBIN, DIRECT 0.1 mg/dL (0.0-0.2); BILIRUBIN,INDIRECT 0.4 mg/dL (0.0-0.9); BILIRUBIN,TOTAL 0.5 mg/dL (0.2-2.0); BUN/CREATININE RATIO 26.66; CALCIUM SERUM 8.9 mg/dL (8.4-10.2); CREATININE SERUM 0.6 mg/dL (0.6-1.4); GLOM FILT RATE Estimated 104.8 mL/min (>60); POTASSIUM 3.2 mmol/L (3.5-5.1); PROTEIN TOTAL SERUM 7.3 g/dL (6.0-8.3)
[~2016-10-19 05:13] MED LIST: ACID REDUCER20 MG PO; ADVAIR 250-501 EACH IH; ADVAIR 250-501 EACH INH; ALAVERT10 M1 PO; AMITRIPTYLINE H50 MG PO; AMITRYPTYLINE PO; AMLODIPINE-BENA1 CA1 PO; APAP PO; ASPIRIN81 M2 PO; ATARAX PO; ATROVENT NEB; BENTYL10 MG PO; BISACODYL EC5 M1 PO; BISACODYL5 M1 PO; BUDESONIDE0.5 MG/2 M INH; BUTALBITAL PO; CARAFATE PO; CARAFATE1 G PO; CARAFATE1 GM PO; CARTIA XT120 MG PO; CARVEDILOL6.25 MG PO; CATAPRES0.1 MG PO; CLONIDINE HCL0.1 MG PO; COLACE PO; COMBIVENT U/D3 M2 INH; DALIRESP500 MCG PO; DILTIAZEM 24HR120 M1 PO; DILTIAZEM 24HR120 MG PO; DOCUSATE SODIU100 MG PO; FERRO-TIME325 MG PO; FIORICET 50-321 EACH PO; FLEXERIL10 MG PO; FLONASE 0.05% N16 G1; FLOVENT DI50 MCG/DIS IH; GLUCOPHAGE500 M1 PO; GLUCOPHAGE500 MG PO; HUMALOG KW200 UNIT/1 SUBQ; HUMALOG100 U/ML; HYDROXYZINE HCL25 M1 DOB; HYDROXYZINE HCL25 M1 PO; IBUPROFEN400 MG PO; IMDUR-ER60 MG PO; IPRAT-ALBUT 0.5-3 ML; IPRATROPIUM0.2 MG/ML NEB; IRON325 ( 65 ) PO; KOMBIGLYZE XR1 EACH PO; LANTUS SOLOSTAR3 ML; LANTUS SOLOSTAR3 ML SUBQ; LANTUS SUBQ; LANTUS100 U/ML SUBQ; LANTUS100 UNITS/ SUBQ; LEVAQUIN PO; LEVAQUIN750 M1 PO; LINZESS145 MCG PO; LISINOPRIL5 MG PO; LOPRESSOR; LORTAB 5-325 M1 EACH PO; LYRICA PO; LYRICA100 MG PO; MECLIZINE HCL12.5 MG PO; MEGESTROL ACETA20 MG PO; METFORMIN HCL500 M1 PO; METFORMIN HCL850 MG PO; METOPROLOL SUCC25 MG PO; MOBIC15 MG PO; MULTIVITAMIN1 UDCAP PO; NAPROSYN500 MG PO; NAPROXEN500 M1 PO; NEURONTIN PO; NEURONTIN600 MG PO; NORVASC; NORVASC PO; NOVOLOG100 U/ML SUBQ; OMNICEF300 MG PO; ONGLYZA5 MG PO; PERFOROMIS20 MCG/2 M INH; PIOGLITAZONE15 MG PO; PREDNISONE PO; PREDNISONE10 MG/DOSE PO; PREMARIN0.625 MG; PREVACID PO; PRILOSEC PO; PRILOSEC40 MG PO; PRINIVIL5 MG PO; PROAIR HFA8.5 GM IH; PROVENTIL INH0.5 ML NEB; RIZATRIPTAN5 MG PO; SIMVASTATIN20 MG PO; SIMVASTATIN40 MG PO; SINGULAIR PO; SPIRIVA18 MCG INH; SUCRALFATE1 G/10 M1 PO; TAMIFLU75 M1 PO; TIZANIDINE HCL4 M1 PO; TOPROL XL PO; TRAMADOL HCL50 M1 PO; TUDORZA PRESS400 MCG; TUDORZA PRESS400 MCG IH; VIBRAMYCIN100 M1 PO; VOLTAREN75 MG PO; WAL-FEX ALLERG180 MG PO; ZOCOR PO; ZOCOR20 MG PO; ZOMIG2.5 M1 INH; ZOMIG2.5 M1 NS; ZOMIG5 MG PO; ZYRTEC PO; ZYRTEC10 M1 PO; ZYRTEC10 M2 PO; advair
[2016-10-19 05:19] LABS: POC - TROPONIN <0.05 ng/mL (<=0.05)
[2016-10-19 06:11] LABS: POC - CKMB 1.6 ng/mL (0.0-7.9); POC - TROPONIN <0.05 ng/mL (<=0.05)
[2016-10-19 06:57] LABS: INFLUENZA A NEG (NEG); INFLUENZA B NEG (NEG)
[2016-10-19 21:09] LABS: HEMATOCRIT 37.3 % (35.0-45.0); MEAN CELL VOLUME 86.5 FL (83-96); MEAN CORPUSCULAR HEMOGLOBIN 27.8 PG (28-34); MEAN CORPUSCULAR HGB CONC 32.1 g/dL (30-36); MEAN PLATELET VOLUME 7.9 FL (6.5-11.5); RED BLOOD COUNT 4.32 X10e (3.90-5.30); RED CELL DISTRIBUTION WIDTH 14.3 % (11.0-15.5); WHITE BLOOD COUNT 33.2 X10e3 (4.0-10.5)
[2016-10-21 00:28] LABS: CREATININE SERUM 0.5 mg/dL (0.6-1.4); GLOM FILT RATE Estimated 111.3 mL/min (>60); MAGNESIUM 1.9 mg/dL (1.6-3.0); POTASSIUM 3.8 mmol/L (3.5-5.1)
[2016-10-21 05:12] LABS: HEMATOCRIT 34.3 % (35.0-45.0); HEMOGLOBIN 10.9 gm/dL (12.0-16.0); MEAN CELL VOLUME 86.8 FL (83-96); MEAN CORPUSCULAR HEMOGLOBIN 27.5 PG (28-34); MEAN CORPUSCULAR HGB CONC 31.7 g/dL (30-36); MEAN PLATELET VOLUME 8.2 FL (6.5-11.5); RED BLOOD COUNT 3.95 X10e (3.90-5.30); RED CELL DISTRIBUTION WIDTH 14.7 % (11.0-15.5); WHITE BLOOD COUNT 36.6 X10e3 (4.0-10.5)
[2016-10-21 06:32] LABS: ALBUMIN SERUM 2.4 g/dL (3.5-5.0); BILIRUBIN,TOTAL 0.5 mg/dL (0.2-2.0); CALCIUM SERUM 8.1 mg/dL (8.4-10.2); CREATININE SERUM 0.5 mg/dL (0.6-1.4); GLOM FILT RATE Estimated 111.3 mL/min (>60); POTASSIUM 4.5 mmol/L (3.5-5.1); PROTEIN TOTAL SERUM 5.4 g/dL (6.0-8.3)
[2016-10-21 14:19] LABS: %MB 5.7 % (0.0-4.0)
[2016-10-21 19:21] LABS: %MB 6.6 % (0.0-4.0); MB 8.2 ng/ml
[2016-10-22 07:24] LABS: HEMATOCRIT 34.1 % (35.0-45.0); HEMOGLOBIN 10.7 gm/dL (12.0-16.0); MEAN CELL VOLUME 86.1 FL (83-96); MEAN CORPUSCULAR HEMOGLOBIN 26.9 PG (28-34); MEAN CORPUSCULAR HGB CONC 31.3 g/dL (30-36); MEAN PLATELET VOLUME 8.2 FL (6.5-11.5); RED BLOOD COUNT 3.96 X10e (3.90-5.30); RED CELL DISTRIBUTION WIDTH 14.7 % (11.0-15.5); WHITE BLOOD COUNT 41.1 X10e3 (4.0-10.5)
[2016-10-22 08:04] LABS: CALCIUM SERUM 8.2 mg/dL (8.4-10.2); CREATININE SERUM 0.4 mg/dL (0.6-1.4); GLOM FILT RATE Estimated 119.8 mL/min (>60); POTASSIUM 3.8 mmol/L (3.5-5.1)
[2016-10-23 06:19] LABS: BASOPHIL# 0.1 X10e3 (0-0.3); BASOPHIL% 0.2 % (0-2.5); DIFF IND YES; EOSINOPHIL% 0.1 % (0.0-7.0); HEMATOCRIT 29.1 % (35.0-45.0); HEMOGLOBIN 9.4 gm/dL (12.0-16.0); LYMPHOCYTE# 0.5 X10e3 (1.0-3.5); LYMPHOCYTE% 1.5 % (17.0-45.0); MEAN CELL VOLUME 84.7 FL (83-96); MEAN CORPUSCULAR HEMOGLOBIN 27.2 PG (28-34); MEAN CORPUSCULAR HGB CONC 32.1 g/dL (30-36); MEAN PLATELET VOLUME 7.7 FL (6.5-11.5); MONOCYTE# 1.1 X10e3 (0-1.0); MONOCYTE% 3.1 % (3.0-12.0); NEUTROPHIL# 33.2 X10e3 (1.5-7.1); NEUTROPHIL% 95.1 % (40-75); PLATELET COUNT 275 X10e3 (140-420); RED BLOOD COUNT 3.44 X10e (3.90-5.30); RED CELL DISTRIBUTION WIDTH 14.5 % (11.0-15.5); WHITE BLOOD COUNT 34.9 X10e3 (4.0-10.5)
[2016-10-23 06:37] LABS: ANISOCYTOSIS SL; NUCLEATED RED BLOOD CELL 1 /100 (0); PLATELET ESTIMATE NORMAL (NORMAL)
[2016-10-23 07:33] LABS: BUN/CREATININE RATIO 42.5; CALCIUM SERUM 8.2 mg/dL (8.4-10.2); CREATININE SERUM 0.4 mg/dL (0.6-1.4); GLOM FILT RATE Estimated 119.8 mL/min (>60); MAGNESIUM 1.8 mg/dL (1.6-3.0); POTASSIUM 4.1 mmol/L (3.5-5.1)
[2016-10-23 10:25] LABS: ARTERIAL BLD GAS O2 SATURATION 60.8 % (90.0-100.0); ARTERIAL BLOOD GAS CARBOXY HB 0.9 %sat (0.0-9.0); ARTERIAL BLOOD GAS HCO3 25.8 mmol/L; ARTERIAL BLOOD GAS MET HB 1.1 %sat (0.0-2.0); ARTERIAL BLOOD GAS PCO2 50.5 mmHg (35.0-45.0); ARTERIAL BLOOD GAS PO2 32.6 mmHg (80.0-100); ARTERIAL BLOOD GAS pH 7.316 (7.350-7.450); ARTERIAL DRAW? NO
[2016-10-24 05:55] LABS: HEMATOCRIT 26.1 % (35.0-45.0); HEMOGLOBIN 8.5 gm/dL (12.0-16.0); MEAN CELL VOLUME 84.6 FL (83-96); MEAN CORPUSCULAR HEMOGLOBIN 27.6 PG (28-34); MEAN CORPUSCULAR HGB CONC 32.6 g/dL (30-36); MEAN PLATELET VOLUME 7.6 FL (6.5-11.5); RED BLOOD COUNT 3.08 X10e (3.90-5.30); RED CELL DISTRIBUTION WIDTH 14.1 % (11.0-15.5); WHITE BLOOD COUNT 29.3 X10e3 (4.0-10.5)
[2016-10-24 06:38] LABS: CREATININE SERUM 0.4 mg/dL (0.6-1.4); GLOM FILT RATE Estimated 119.8 mL/min (>60); MAGNESIUM 1.7 mg/dL (1.6-3.0); POTASSIUM 3.2 mmol/L (3.5-5.1)
[2016-10-24 10:21] LABS: ARTERIAL BLD GAS O2 SATURATION 95.4 % (90.0-100.0); ARTERIAL BLOOD GAS CARBOXY HB 0.4 %sat (0.0-9.0); ARTERIAL BLOOD GAS HCO3 37.7 mmol/L; ARTERIAL BLOOD GAS MET HB 1.2 %sat (0.0-2.0); ARTERIAL BLOOD GAS pH 7.463 (7.350-7.450)
[2016-10-24 10:23] LABS: ARTERIAL BLOOD GAS ALLEN TEST N; ARTERIAL BLOOD GAS ART SITE RIGHT RADIAL; ARTERIAL BLOOD GAS DELIVERY NASAL CANNULA; ARTERIAL BLOOD GAS PCO2 52.7 mmHg (35.0-45.0); ARTERIAL BLOOD GAS PO2 78.7 mmHg (80.0-100); ARTERIAL DRAW? YES
[2016-10-24 13:15] LABS: HEMATOCRIT 27.1 % (35.0-45.0); HEMOGLOBIN 8.8 gm/dL (12.0-16.0); MEAN CELL VOLUME 84.3 FL (83-96); MEAN CORPUSCULAR HEMOGLOBIN 27.4 PG (28-34); MEAN CORPUSCULAR HGB CONC 32.5 g/dL (30-36); MEAN PLATELET VOLUME 7.5 FL (6.5-11.5); RED BLOOD COUNT 3.22 X10e (3.90-5.30); RED CELL DISTRIBUTION WIDTH 14.3 % (11.0-15.5); WHITE BLOOD COUNT 33.2 X10e3 (4.0-10.5)
[2016-10-25 07:32] LABS: BASOPHIL# 0.1 X10e3 (0-0.3); BASOPHIL% 0.4 % (0-2.5); HEMATOCRIT 23.6 % (35.0-45.0); HEMOGLOBIN 7.5 gm/dL (12.0-16.0); LYMPHOCYTE# 1.6 X10e3 (1.0-3.5); LYMPHOCYTE% 5.1 % (17.0-45.0); MEAN CELL VOLUME 85.2 FL (83-96); MEAN CORPUSCULAR HEMOGLOBIN 27.2 PG (28-34); MEAN CORPUSCULAR HGB CONC 31.9 g/dL (30-36); MEAN PLATELET VOLUME 7.6 FL (6.5-11.5); MONOCYTE# 1.2 X10e3 (0-1.0); MONOCYTE% 3.7 % (3.0-12.0); NEUTROPHIL# 28.7 X10e3 (1.5-7.1); NEUTROPHIL% 90.8 % (40-75); PLATELET COUNT 291 X10e3 (140-420); RED BLOOD COUNT 2.77 X10e (3.90-5.30); RED CELL DISTRIBUTION WIDTH 14.5 % (11.0-15.5); WHITE BLOOD COUNT 31.6 X10e3 (4.0-10.5)
[2016-10-25 07:34] LABS: DIFF IND YES
[2016-10-25 08:14] LABS: PLATELET ESTIMATE NORMAL (NORMAL)
[2016-10-25 08:16] LABS: ANISOCYTOSIS SL
[2016-10-25 08:26] LABS: CALCIUM SERUM 7.9 mg/dL (8.4-10.2); CREATININE SERUM 0.4 mg/dL (0.6-1.4); GLOM FILT RATE Estimated 119.8 mL/min (>60); MAGNESIUM 1.7 mg/dL (1.6-3.0); PHOSPHOROUS 2.4 mg/dL (2.5-4.6); POTASSIUM 3.2 mmol/L (3.5-5.1)
[2016-10-25 08:30] LABS: BUN/CREATININE RATIO 27.5; CALCIUM SERUM 7.8 mg/dL (8.4-10.2); CREATININE SERUM 0.4 mg/dL (0.6-1.4); GLOM FILT RATE Estimated 119.8 mL/min (>60); POTASSIUM 3.1 mmol/L (3.5-5.1)
[2016-10-26 06:28] LABS: MEAN CELL VOLUME 85.6 FL (83-96); MEAN CORPUSCULAR HEMOGLOBIN 28.3 PG (28-34); MEAN PLATELET VOLUME 7.5 FL (6.5-11.5); RED BLOOD COUNT 3.74 X10e (3.90-5.30); RED CELL DISTRIBUTION WIDTH 14.5 % (11.0-15.5); WHITE BLOOD COUNT 42.1 X10e3 (4.0-10.5)
[2016-10-26 06:29] LABS: HEMOGLOBIN 10.6 gm/dL (12.0-16.0)
[2016-10-26 06:51] LABS: BUN/CREATININE RATIO 17.5; CALCIUM SERUM 8.4 mg/dL (8.4-10.2); CREATININE SERUM 0.4 mg/dL (0.6-1.4); GLOM FILT RATE Estimated 119.8 mL/min (>60); MAGNESIUM 1.8 mg/dL (1.6-3.0); POTASSIUM 3.9 mmol/L (3.5-5.1)
[2016-10-27 06:35] LABS: HEMATOCRIT 30.3 % (35.0-45.0); HEMOGLOBIN 9.7 gm/dL (12.0-16.0); MEAN CELL VOLUME 88.2 FL (83-96); MEAN CORPUSCULAR HEMOGLOBIN 28.3 PG (28-34); MEAN CORPUSCULAR HGB CONC 32.1 g/dL (30-36); MEAN PLATELET VOLUME 7.4 FL (6.5-11.5); RED BLOOD COUNT 3.43 X10e (3.90-5.30); RED CELL DISTRIBUTION WIDTH 14.8 % (11.0-15.5); WHITE BLOOD COUNT 41.2 X10e3 (4.0-10.5)
[2016-10-27 07:09] LABS: BUN/CREATININE RATIO 17.5; CALCIUM SERUM 8.3 mg/dL (8.4-10.2); CREATININE SERUM 0.4 mg/dL (0.6-1.4); GLOM FILT RATE Estimated 119.8 mL/min (>60); MAGNESIUM 1.9 mg/dL (1.6-3.0); POTASSIUM 3.8 mmol/L (3.5-5.1)
[2016-10-28 07:49] LABS: MEAN CELL VOLUME 88.6 FL (83-96); MEAN CORPUSCULAR HEMOGLOBIN 28.5 PG (28-34); MEAN CORPUSCULAR HGB CONC 32.2 g/dL (30-36); MEAN PLATELET VOLUME 7.4 FL (6.5-11.5); RED BLOOD COUNT 3.5 X10e (3.90-5.30); RED CELL DISTRIBUTION WIDTH 14.7 % (11.0-15.5)
[2016-10-28 09:04] LABS: MAGNESIUM 1.7 mg/dL (1.6-3.0); POTASSIUM 3.8 mmol/L (3.5-5.1)
[2016-10-29 06:24] LABS: BASOPHIL# 0.1 X10e3 (0-0.3); BASOPHIL% 0.2 % (0-2.5); HEMATOCRIT 27.5 % (35.0-45.0); HEMOGLOBIN 8.9 gm/dL (12.0-16.0); LYMPHOCYTE% 3.3 % (17.0-45.0); MEAN CELL VOLUME 88.3 FL (83-96); MEAN CORPUSCULAR HEMOGLOBIN 28.6 PG (28-34); MEAN CORPUSCULAR HGB CONC 32.3 g/dL (30-36); MONOCYTE# 1.1 X10e3 (0-1.0); MONOCYTE% 3.9 % (3.0-12.0); NEUTROPHIL# 26.9 X10e3 (1.5-7.1); NEUTROPHIL% 92.6 % (40-75); PLATELET COUNT 282 X10e3 (140-420); RED BLOOD COUNT 3.12 X10e (3.90-5.30); RED CELL DISTRIBUTION WIDTH 14.9 % (11.0-15.5); WHITE BLOOD COUNT 29.1 X10e3 (4.0-10.5)
[2016-10-29 06:25] LABS: DIFF IND YES
[2016-10-29 07:07] LABS: ANISOCYTOSIS SL; PLATELET ESTIMATE NORMAL (NORMAL)
[2016-10-29 19:35] LABS: MAGNESIUM 1.7 mg/dL (1.6-3.0); POTASSIUM 4.3 mmol/L (3.5-5.1)
[2016-10-30 08:13] LABS: HEMATOCRIT 34.4 % (35.0-45.0); MEAN CELL VOLUME 89.3 FL (83-96); MEAN CORPUSCULAR HEMOGLOBIN 28.5 PG (28-34); MEAN CORPUSCULAR HGB CONC 31.9 g/dL (30-36); MEAN PLATELET VOLUME 7.5 FL (6.5-11.5); RED BLOOD COUNT 3.85 X10e (3.90-5.30); RED CELL DISTRIBUTION WIDTH 15.2 % (11.0-15.5); WHITE BLOOD COUNT 30.5 X10e3 (4.0-10.5)
[2016-10-30 09:47] LABS: MAGNESIUM 2.1 mg/dL (1.6-3.0); POTASSIUM 4.8 mmol/L (3.5-5.1)
[2016-10-31 06:17] LABS: HEMATOCRIT 27.7 % (35.0-45.0); HEMOGLOBIN 9.2 gm/dL (12.0-16.0); MEAN CELL VOLUME 86.8 FL (83-96); MEAN CORPUSCULAR HEMOGLOBIN 28.7 PG (28-34); MEAN PLATELET VOLUME 8.3 FL (6.5-11.5); RED BLOOD COUNT 3.19 X10e (3.90-5.30); RED CELL DISTRIBUTION WIDTH 16.3 % (11.0-15.5); WHITE BLOOD COUNT 23.7 X10e3 (4.0-10.5)
[2016-10-31 08:54] LABS: CALCIUM SERUM 8.2 mg/dL (8.4-10.2); CREATININE SERUM 0.5 mg/dL (0.6-1.4); GLOM FILT RATE Estimated 111.3 mL/min (>60); POTASSIUM 3.8 mmol/L (3.5-5.1)
[2016-10-31] MEDS ORDERED: PREDNISONE1 MG PO (16:18)
[2016-10-31] MEDS ORDERED: MAG-OX 400400 M1 PO (16:21)
[2016-10-31] MEDS ORDERED: RISPERDAL0.25 MG PO (16:27)
[2016-10-31] MEDS ORDERED: TESSALON PERLE100 M1 PO (16:28)
[2016-10-31] MEDS ORDERED: METOPROLOL TAR25 MG PO (16:31)
[2016-10-31] MEDS ORDERED: CEFAZOLIN SODIUM1 GM IV (16:37)
[2016-10-31] MEDS ORDERED: AMIODARONE HCL200 MG PO (16:38)
[2016-10-31] MEDS ORDERED: FLUCONAZOLE200 M2 PO (16:40)
[2016-10-31] MEDS ORDERED: ALBUTEROL MININEB NEB (16:48)
== END 2016-10-31 18:37 | disposition home health service (06) | DRG 871 ==
LOC: CED 05:13 → CEDOF 07:50 → C5B 14:10
PROVIDERS: Internal Medicine; Internal Medicine Cardiovascular Disease; Internal Medicine Pulmonary Disease; Nurse Practitioner; Nurse Practitioner Family; Physician Assistant
PROC: 02HV33Z Insertion of Infusion Device into Superior Vena Cava, Percutaneous Approach (ICD-10-PCS; principal; 2016-10-21)
PROC: 30233N1 Transfusion of Nonautologous Red Blood Cells into Peripheral Vein, Percutaneous Approach (ICD-10-PCS; 2016-10-25)
DX: A41.9 Sepsis, unspecified organism (principal); J15.211 Pneumonia due to Methicillin susceptible Staphylococcus aureus; J96.21 Acute and chronic respiratory failure with hypoxia; R06.00 Dyspnea, unspecified; I27.2 Other secondary pulmonary hypertension; J44.0 Chronic obstructive pulmonary disease with (acute) lower respiratory infection; Z99.81 Dependence on supplemental oxygen; R13.10 Dysphagia, unspecified; I48.0 Paroxysmal atrial fibrillation; F33.1 Major depressive disorder, recurrent, moderate; E11.9 Type 2 diabetes mellitus without complications; J44.1 Chronic obstructive pulmonary disease with (acute) exacerbation; E86.0 Dehydration; Y95 Nosocomial condition; I25.10 Atherosclerotic heart disease of native coronary artery without angina pectoris; K21.9 Gastro-esophageal reflux disease without esophagitis; Z86.73 Personal history of transient ischemic attack (TIA), and cerebral infarction without residual deficits; Z87.891 Personal history of nicotine dependence; N28.9 Disorder of kidney and ureter, unspecified; I08.1 Rheumatic disorders of both mitral and tricuspid valves; E78.5 Hyperlipidemia, unspecified; D72.829 Elevated white blood cell count, unspecified; Z88.0 Allergy status to penicillin; D64.9 Anemia, unspecified; I10 Essential (primary) hypertension; R45.1 Restlessness and agitation; F41.9 Anxiety disorder, unspecified
CPT/HCPCS: 36415; 36600; 70491; 71010; 71260; 74177; 74230; 80048; 80053; 80061; 80076; 80200; 80202; 82274; 82308; 82550; 82553; 82803; 82947; 83605; 83735; 83880; 84100; 84132; 84443; 84484; 85025; 85027; 86850; 86900; 86901; 86923; 87040; 87045; 87070; 87077; 87186; 87205; 87427; 87493; 87804; 87899; 92526; 92610; 92611; 93005; 93306; 93970; 94640; 94667; 94668; 94760; 96361; 96374; 96375; 97110; 97116; 97162; 97530; 99291; G8978-GP; G8979-GP; G8996-GN; G8997-GN; G8998-GN; J0282; J0360; J0690; J0692; J1650; J1815; J1940; J2270; J2405; J2920; J3260; J3370; J3475; J3490; P9016; Q9967

== ENCOUNTER 2017-01-15 22:16 | Emergency (ER) | payer MEDICARE, OTHER ==
--- NOTE | ~2017-01-15 | EKG ---
PATIENT: MARY JO BARKER UNIT #: [id number] Ventricular Rate: 99 BPM Atrial Rate: 99 BPM P-R Interval: 158 ms QRS Duration: 86 ms Q-T Interval: 426 ms QTC Calculation(Bezet): 546 ms P [place]: 78 degrees Calculated R [place]: -38 degrees Calculated T [place]: 58 degrees Diagnosis Line: Normal sinus rhythm Diagnosis Line: Left axis deviation Diagnosis Line: Septal infarct , age undetermined Diagnosis Line: Abnormal ECG Diagnosis Line: No previous ECGs available Diagnosis Line: Confirmed by CLAYTON MCKEON MD ([id number]) on Diagnosis Line: 01/17/2017 8:20:50 AM INTERPRETING MD: LINDA YODER
--- NOTE | ~2017-01-15 | CR71 ---
[facility] A Service of [facility] & [facility] RADIOLOGY TEXT RESULTS PATIENT: MARY JO BARKER LOCATION: [facility] : 42 UNIT #: [id number] AGE: [address]: Max Paredes MD SEX: F ORDER DR: [id number] [facility] [address] [place], [place] [address] [id number] E MR#: [id number] Acc #: [id number] NAME: MARY JO BARKER : 1940 SEX: F STUDY DATE/TIME: 01/15/2017 23:13 UNIT: [facility] ROOM: STUDY DESCRIPTION: CR Chest Single View Attending Physician: Max Paredes M.D. Ordering Physician: Max Paredes M.D. Primary Care Physician: Kelly Pelaez M.D. MEDICAL IMAGING REPORT This report is preliminary unless electronic signature is present EXAM Single view chest. INDICATIONS Left-sided chest pain and shortness of air, status post fall. FINDINGS Single portable AP view of the chest compared to 10/30/2016. Heart and mediastinal contours are unchanged. The heart is enlarged. There is background COPD. No pneumothorax or pleural effusion. There is a nondisplaced left lateral rib fracture involving the seventh rib. IMPRESSION Nondisplaced left lateral seventh rib fracture. Dictated by... Tyrell Patten M.D. THIS IS AN ELECTRONICALLY VERIFIED REPORT Tyrell Patten M.D. at 01/16/2017 10:50 PM ALEXANDRA/fabián TD: 01/16/2017 17:17 JOB #: [id number] MEDICAL IMAGING REPORT Page 1 of 1 COPY
[~2017-01-15 22:16] MED LIST changes: +ALBUTEROL MININEB NEB; +AMIODARONE HCL200 MG PO; +CEFAZOLIN SODIUM1 GM IV; +FLUCONAZOLE200 M2 PO; +MAG-OX 400400 M1 PO; +METOPROLOL TAR25 MG PO; +PREDNISONE1 MG PO; +RISPERDAL0.25 MG PO; +TESSALON PERLE100 M1 PO
[2017-01-15 23:53] LABS: BASOPHIL# 0.1 X10e3 (0-0.3); BASOPHIL% 0.7 % (0-2.5); EOSINOPHIL# 0.1 X10e3 (0-0.7); EOSINOPHIL% 1.1 % (0.0-7.0); HEMATOCRIT 37.6 % (35.0-45.0); LYMPHOCYTE# 1.5 X10e3 (1.0-3.5); LYMPHOCYTE% 16.7 % (17.0-45.0); MEAN CELL VOLUME 82.1 FL (83-96); MEAN CORPUSCULAR HEMOGLOBIN 26.2 PG (28-34); MEAN CORPUSCULAR HGB CONC 31.9 g/dL (30-36); MEAN PLATELET VOLUME 8.3 FL (6.5-11.5); MONOCYTE% 11.5 % (3.0-12.0); NEUTROPHIL# 6.1 X10e3 (1.5-7.1); PLATELET COUNT 296 X10e3 (140-420); RED BLOOD COUNT 4.58 X10e (3.90-5.30); RED CELL DISTRIBUTION WIDTH 16.3 % (11.0-15.5); WHITE BLOOD COUNT 8.7 X10e3 (4.0-10.5)
[2017-01-15 23:54] LABS: DIFF IND NO
[2017-01-16 01:54] LABS: BUN/CREATININE RATIO 37.14; CALCIUM SERUM 7.6 mg/dL (8.4-10.2); CREATININE SERUM 0.7 mg/dL (0.6-1.4); GLOM FILT RATE Estimated 98.9 mL/min (>60); POTASSIUM 3.6 mmol/L (3.5-5.1)
== END 2017-01-16 02:45 | disposition home or self-care (01) ==
LOC: CED 22:16
PROVIDERS: Emergency Medicine
DX: S22.32XA Fracture of one rib, left side, initial encounter for closed fracture (principal); I48.91 Unspecified atrial fibrillation; I10 Essential (primary) hypertension; F41.9 Anxiety disorder, unspecified; J44.9 Chronic obstructive pulmonary disease, unspecified; X58.XXXA Exposure to other specified factors, initial encounter; Y92.027 Garden or yard of mobile home as the place of occurrence of the external cause
CPT/HCPCS: 36415; 71010; 80048; 82947; 85025; 93005; 96361; 96374; 99284

== ENCOUNTER → 2017-01-26 | Outpatient (CLI) | payer MEDICARE, OTHER ==
--- NOTE | ~2017-01-26 | BD1 ---
[facility] A Service of [facility] & [facility] RADIOLOGY TEXT RESULTS PATIENT: MARY JO BARKER LOCATION: [facility] : 42 UNIT #: [id number] AGE: [address]: ERIN KERNS SEX: F ORDER DR: [id number] [facility] [address] [place], [place] [address] [id number] O MR#: [id number] Acc #: [id number] NAME: MARY JO BARKER : 1940 SEX: F STUDY DATE/TIME: 01/26/2017 11:30 UNIT: [facility] ROOM: STUDY DESCRIPTION: BD Dexa Bone Dens 1+ Site Attending Physician: Mee Méndez Referring Physician: Kelly Pelaez M.D. Ordering Physician: Mee Méndez Primary Care Physician: Kelly Pelaez M.D. MEDICAL IMAGING REPORT This report is preliminary unless electronic signature is present EXAM DXA scan 01/26/2017 HISTORY Status post menopause with no hormone replacement therapy. Osteopenia. Diabetes. Fracture of ankle and hip in last 10 years. Family history of osteoporosis in mother and sister. FINDINGS Bone mineral density in the lumbar spine from L1 through L4 is 0.803 g/cm2, which is 3.2 standard deviations below the mean when compared to the young adult reference population, which is characteristic of osteoporosis. This is 0.6 standard deviation below the mean when compared to the age-matched population. Compared with 03/27/2014, there has been a decrease in bone mineral density in the lumbar spine of 1.4%. Bone mineral density in the left hip was 0.646 g/cm2, which is 2.5 standard deviations below the mean when compared to the young adult reference population, which is characteristic of osteoporosis. This is 1.2 standard deviations below the mean when compared to the age-matched population. Compared with 03/27/2014, there has been a decrease in bone mineral density in the left hip of 5.6%. IMPRESSION Bone mineral density in the lumbar spine and left hip characteristic of osteoporosis. Compared with 03/27/2014, there has been a decrease in bone mineral density in the lumbar spine and the left hip. Dictated by... Peter Whittaker M.D. THIS IS AN ELECTRONICALLY VERIFIED REPORT [facility] A Service of [facility] & [facility] RADIOLOGY TEXT RESULTS PATIENT: MARY JO BARKER LOCATION: [facility] : 42 UNIT #: [id number] AGE: [address]: ERIN KERNS SEX: F ORDER DR: Peter Whittaker M.D. at 01/26/2017 5:07 PM Jozef TD: 01/26/2017 15:57 JOB #: [id number] MEDICAL IMAGING REPORT Page 1 of 1 COPY
== END | disposition home or self-care (01) ==
LOC: CWCC 11:00
DX: M81.0 Age-related osteoporosis without current pathological fracture (principal)
CPT/HCPCS: 77080

== ENCOUNTER → 2017-02-15 | Outpatient (CLI) | payer MEDICARE, OTHER ==
--- NOTE | ~2017-02-15 | MR113 ---
[facility] A Service of [facility] RADIOLOGY TEXT RESULTS PATIENT: MARY JO BARKER LOCATION: [facility] : 42 UNIT #: [id number] AGE: [address]: ERIN KERNS SEX: F ORDER DR: [id number] [facility] [address] [place], [place] [address] [id number] O MR#: [id number] Acc #: [id number] NAME: MARY JO BARKER : 1940 SEX: F STUDY DATE/TIME: 02/15/2017 16:50 UNIT: [facility] ROOM: STUDY DESCRIPTION: MR Lumbar Wo Contrast Attending Physician: Mee Méndez Referring Physician: Kelly Pelaez M.D. Ordering Physician: Kelly Pelaez M.D. Primary Care Physician: Kelly Pelaez M.D. MRI CENTER REPORT This report is preliminary unless electronic signature is present. EXAM Lumbar spine MRI without contrast 02/15/2017 PROCEDURE Routine lumbar spine MRI without contrast. COMPARISON None. CLINICAL HISTORY Back pain with severe left leg radiculopathy with left leg numbness as well since fall on February 09 FINDINGS There is a lumbar scoliosis, but no daisy- or retrolisthesis. Bone marrow signal is normal and the distal cord and conus are normal in position and appearance. The paraspinous tissues are unremarkable. At L1-2, the disc, canal and foramina are normal. At L2-3, there is a slight disc bulge but no canal stenosis. There is borderline right and mild left foraminal stenosis. At L3-4, there is no canal stenosis despite a mild disc bulge. There is borderline to mild right and mild left foraminal stenosis. At L4-5, there is no canal stenosis and borderline if any bilateral foraminal narrowing. At L5-S1, there is a small central disc protrusion without canal stenosis. The right foramen is normal. There is borderline left foraminal narrowing. IMPRESSION [facility] A Service of [facility] RADIOLOGY TEXT RESULTS PATIENT: MARY JO BARKER LOCATION: [facility] : 42 UNIT #: [id number] AGE: [address]: ERIN KERNS SEX: F ORDER DR: There is mild scoliosis. There is no fracture, marrow edema or acute abnormality. There are some areas of modest degenerative foraminal narrowing detailed above. No acute findings. Dictated by... Panfilo Domínguez M.D. THIS IS AN ELECTRONICALLY VERIFIED REPORT Panfilo Domínguez M.D. at 02/20/2017 5:20 PM YESSENIA/precious TD: 02/19/2017 09:00 JOB #: [id number] MRI CENTER REPORT Page 1 of 1 COPY
== END | disposition home or self-care (01) ==
LOC: CWCC 02-08 13:45 → CMRI 16:23 → CWCC 16:30 → CMRI 17:00
DX: M51.17 Intervertebral disc disorders with radiculopathy, lumbosacral region (principal); M41.9 Scoliosis, unspecified
CPT/HCPCS: 72148

== ENCOUNTER → 2017-02-19 | Outpatient (CLI) | payer MEDICARE, OTHER ==
--- NOTE | ~2017-02-19 | MY29 ---
[facility] A Service of [facility] & [facility] RADIOLOGY TEXT RESULTS PATIENT: MARY JO BARKER LOCATION: [facility] : 42 UNIT #: [id number] AGE: [address]: Kelly Pelaez MD SEX: F ORDER DR: [id number] [facility] [address] [place], [place] [address] [id number] O MR#: [id number] Acc #: [id number] NAME: MARY JO BARKER : 1940 SEX: F STUDY DATE/TIME: 02/19/2017 12:52 UNIT: [facility] ROOM: STUDY DESCRIPTION: MY NITA SCREENING W/ CAD BILAT Attending Physician: Kelly Pelaez M.D. Referring Physician: Kelly Pelaez M.D. Ordering Physician: Kelly Pelaez M.D. Primary Care Physician: Kelly Pelaez M.D. MEDICAL IMAGING REPORT This report is preliminary unless electronic signature is present EXAM Digital screening mammogram, 02/19/2017 HISTORY 76-year-old woman, no risk elevation. Annual screening. COMPARISON Mammogram 09/26/2010, 10/27/2011, 05/12/2014, 02/17/2016. FINDINGS Digital imaging of each breast was completed utilizing screening protocol. Review includes FDA-approved CAD device. Breast parenchyma is moderately dense with parenchymal opacities again identified in each breast. Extensive vascular calcification is noted bilaterally. This generally correlates with coronary artery disease. Correlate clinically. There is no developing mass. I see no interval occurring suspicious microcalcifications and no architectural deformity. IMPRESSION Stable benign mammogram. Extensive vascular calcification in both breasts. This generally correlates with coronary artery disease. Correlate clinically. Patients over the age of 40 are entered into a reminder system with target due date for the next mammogram. A result letter will also be sent to the patient. BIRADS: 2 [facility] A Service of [facility] & [facility] RADIOLOGY TEXT RESULTS PATIENT: MARY JO BARKER LOCATION: [facility] : 42 UNIT #: [id number] AGE: [address]: Kelly Pelaez MD SEX: F ORDER DR: Dictated by... Jeffrey Yoder M.D. THIS IS AN ELECTRONICALLY VERIFIED REPORT Jeffrey Yoder M.D. at 02/20/2017 8:09 AM ISMAEL/pavan TD: 02/19/2017 20:25 JOB #: [id number] MEDICAL IMAGING REPORT Page 1 of 1 COPY
== END | disposition home or self-care (01) ==
LOC: CWCC 12:00
DX: Z12.31 Encounter for screening mammogram for malignant neoplasm of breast (principal); I25.10 Atherosclerotic heart disease of native coronary artery without angina pectoris
CPT/HCPCS: G0202

== ENCOUNTER 2017-03-11 19:54 | Emergency (ER) | payer MEDICARE, OTHER ==
[~2017-03-11] VITALS: Ht 144.8 cm; Wt 43.5 kg
--- NOTE | ~2017-03-11 | EKG ---
PATIENT: MARY JO BARKER UNIT #: [id number] Ventricular Rate: 97 BPM Atrial Rate: 97 BPM P-R Interval: 142 ms QRS Duration: 82 ms Q-T Interval: 282 ms QTC Calculation(Bezet): 358 ms P [place]: 80 degrees Calculated R [place]: 78 degrees Calculated T [place]: 78 degrees Diagnosis Line: Normal sinus rhythm Diagnosis Line: Normal ECG Diagnosis Line: When compared with ECG of 16-JAN-2017 00:13, Diagnosis Line: Criteria for Septal infarct are no longer Present Diagnosis Line: T wave amplitude has decreased in Anterior leads Diagnosis Line: QT has shortened Diagnosis Line: Confirmed by NIKKI CARL MD ([id number]) on 03/12/2017 Diagnosis Line: 7:52:01 PM INTERPRETING MD: MESERET YODER
--- NOTE | ~2017-03-11 | CR72 ---
[facility] A Service of [facility] & [facility] RADIOLOGY TEXT RESULTS PATIENT: MARY JO BARKER LOCATION: [facility] : 42 UNIT #: [id number] AGE: [address]: Jarrett Mendoza MD SEX: F ORDER DR: [id number] [facility] [address] [place], [place] [address] [id number] E MR#: [id number] Acc #: [id number] NAME: MARY JO BARKER : 1940 SEX: F STUDY DATE/TIME: 03/11/2017 21:40 UNIT: [facility] ROOM: STUDY DESCRIPTION: CR Chest Single View Portable Attending Physician: Jarrett Mendoza M.D. Ordering Physician: Jarrett Mendoza M.D. Primary Care Physician: Kelly Pelaez M.D. MEDICAL IMAGING REPORT This report is preliminary unless electronic signature is present EXAM Portable chest 03/11/2017 HISTORY 76-year-old female with shortness of air and chest pain for 2 weeks. COMPARISON Chest 01/15/2017. FINDINGS Frontal chest demonstrates clear lungs. No pleural effusion or pneumothorax. Cardiomegaly stable. Mediastinum and pulmonary vasculature unremarkable. Emphysema. IMPRESSION Emphysema and cardiomegaly, unchanged. No acute cardiopulmonary findings. Dictated by... Juan Parra M.D. THIS IS AN ELECTRONICALLY VERIFIED REPORT Juan Parra M.D. at 03/12/2017 3:05 PM SANDEEP/precious TD: 03/12/2017 10:58 JOB #: [id number] MEDICAL IMAGING REPORT Page 1 of 1 COPY
[2017-03-11 20:29] LABS: BASOPHIL# 0.1 X10e3 (0-0.3); BASOPHIL% 0.7 % (0-2.5); EOSINOPHIL# 0.1 X10e3 (0-0.7); EOSINOPHIL% 0.6 % (0.0-7.0); HEMATOCRIT 35.6 % (35.0-45.0); HEMOGLOBIN 11.6 gm/dL (12.0-16.0); LYMPHOCYTE# 2.1 X10e3 (1.0-3.5); LYMPHOCYTE% 15.8 % (17.0-45.0); MEAN CELL VOLUME 81.2 FL (83-96); MEAN CORPUSCULAR HEMOGLOBIN 26.5 PG (28-34); MEAN CORPUSCULAR HGB CONC 32.6 g/dL (30-36); MEAN PLATELET VOLUME 8.1 FL (6.5-11.5); MONOCYTE# 0.9 X10e3 (0-1.0); MONOCYTE% 7.1 % (3.0-12.0); NEUTROPHIL# 9.8 X10e3 (1.5-7.1); NEUTROPHIL% 75.8 % (40-75); PLATELET COUNT 305 X10e3 (140-420); RED BLOOD COUNT 4.39 X10e (3.90-5.30); RED CELL DISTRIBUTION WIDTH 16.1 % (11.0-15.5)
[2017-03-11 20:31] LABS: DIFF IND NO
[2017-03-11 20:58] LABS: ALBUMIN SERUM 4.1 g/dL (3.5-5.0); BILIRUBIN, DIRECT 0.1 mg/dL (0.0-0.2); BILIRUBIN,INDIRECT 0.8 mg/dL (0.0-0.9); BILIRUBIN,TOTAL 0.9 mg/dL (0.2-2.0); CALCIUM SERUM 9.6 mg/dL (8.4-10.2); CREATININE SERUM 0.8 mg/dL (0.6-1.4); GLOM FILT RATE Estimated 84.3 mL/min (>60); POTASSIUM 3.6 mmol/L (3.5-5.1); PROTEIN TOTAL SERUM 7.3 g/dL (6.0-8.3)
[2017-03-12 01:11] LABS: %MB 3.7 % (0.0-4.0); MB 4.3 ng/ml
== END 2017-03-12 01:30 | disposition home or self-care (01) ==
LOC: CED 19:54
PROVIDERS: Emergency Medicine
DX: R09.1 Pleurisy (principal)
CPT/HCPCS: 36415; 71010; 80048; 80076; 82550; 82553; 84484; 85025; 85379; 93005; 99285

== ENCOUNTER 2017-03-15 23:43 | Emergency (ER) | payer MEDICARE, OTHER ==
[~2017-03-15] VITALS: Ht 144.8 cm; Wt 43.5 kg
== END 2017-03-16 01:00 | disposition home or self-care (01) ==
LOC: CED 23:43
DX: N93.8 Other specified abnormal uterine and vaginal bleeding (principal); J44.9 Chronic obstructive pulmonary disease, unspecified; I48.91 Unspecified atrial fibrillation; Z79.899 Other long term (current) drug therapy; Z88.0 Allergy status to penicillin; Z88.2 Allergy status to sulfonamides; Z88.5 Allergy status to narcotic agent; Z88.1 Allergy status to other antibiotic agents
CPT/HCPCS: 99283

== ENCOUNTER 2017-03-22 19:41 | Emergency (ER) | payer MEDICARE, OTHER ==
[~2017-03-22] VITALS: Ht 144.8 cm; Wt 43.5 kg
--- NOTE | ~2017-03-22 | CT2 ---
[facility] A Service of [facility] RADIOLOGY TEXT RESULTS PATIENT: MARY JO BARKER LOCATION: [facility] : 42 UNIT #: [id number] AGE: [address]: Jarrett Mendoza MD SEX: F ORDER DR: [id number] [facility] [address] [facility]. [place], [place] [address] [id number] MR#: [id number] Acc #: [id number] NAME: MARY JO BARKER : 1940 SEX: F STUDY DATE/TIME: 03/22/2017 23:46 UNIT: KAYLA ROOM: STUDY DESCRIPTION: CT Abd and Pelv W Cont Attending Physician: Jarrett Mendoza M.D. Ordering Physician: Jarrett Mendoza M.D. Primary Care Physician: Kelly Pelaez M.D. MEDICAL IMAGING REPORT This report is preliminary unless electronic signature is present EXAM CT abdomen and pelvis with contrast INDICATION Generalized abdominal pain today. PROCEDURE Contrast-enhanced CT of the abdomen and pelvis. This CT exam was performed with one or more of the following radiation dose reduction techniques: Automatic exposure control, adjustment of mA and/or kV according to patient size, and iterative reconstruction. COMPARISON 10/26/2016 FINDINGS ABDOMEN WITH CONTRAST: Areas of scarring in the lung bases. A 9 mm low-attenuation lesion in segment 7 of the liver is similar to the previous study but remains indeterminate. The spleen, adrenal glands, pancreas are unremarkable. Gallbladder shows no acute abnormality. The bowel loops are nondilated. There are small bilateral renal cysts largest is in the lower left kidney and measures 1.6 cm. PELVIS WITH CONTRAST: Retroverted uterus. The endometrium measures up to 1.6 cm. No adnexal mass or free pelvic fluid. No aggressive appearing bone lesion. IMPRESSION 1. No acute findings. 2. Thickening of the endometrium for a postmenopausal female. Recommend evaluation with nonemergent pelvic ultrasound. [facility] A Service of [facility] RADIOLOGY TEXT RESULTS PATIENT: MARY JO BARKER LOCATION: [facility] : 42 UNIT #: [id number] AGE: [address]: Jarrett Mendoza MD SEX: F ORDER DR: 3. Other findings detailed above. Dictated by... Emerson Mcwilliams M.D. THIS IS AN ELECTRONICALLY VERIFIED REPORT Emerson Mcwilliams M.D. at 03/27/2017 8:56 AM COURTNEYD/sangeeta TD: 03/23/2017 10:28 JOB #: [id number] MEDICAL IMAGING REPORT Page 1 of 1 COPY
[2017-03-22 21:18] LABS: BASOPHIL# 0.1 X10e3 (0-0.3); BASOPHIL% 1.1 % (0-2.5); DIFF IND NO; EOSINOPHIL# 0.1 X10e3 (0-0.7); EOSINOPHIL% 0.9 % (0.0-7.0); HEMATOCRIT 40.5 % (35.0-45.0); HEMOGLOBIN 13.4 gm/dL (12.0-16.0); LYMPHOCYTE# 1.6 X10e3 (1.0-3.5); LYMPHOCYTE% 18.1 % (17.0-45.0); MEAN CORPUSCULAR HEMOGLOBIN 26.7 PG (28-34); MEAN CORPUSCULAR HGB CONC 32.9 g/dL (30-36); MEAN PLATELET VOLUME 8.3 FL (6.5-11.5); MONOCYTE# 1.3 X10e3 (0-1.0); MONOCYTE% 14.5 % (3.0-12.0); NEUTROPHIL# 5.8 X10e3 (1.5-7.1); NEUTROPHIL% 65.4 % (40-75); PLATELET COUNT 285 X10e3 (140-420); RED CELL DISTRIBUTION WIDTH 15.8 % (11.0-15.5); WHITE BLOOD COUNT 8.9 X10e3 (4.0-10.5)
[2017-03-22 22:15] LABS: URINE SOURCE CLEAN CATCH
[2017-03-22 22:22] LABS: URINE APPEARANCE CLEAR; URINE BILIRUBIN NEG (NEG); URINE BLOOD NEG (NEG); URINE COLOR YELLOW; URINE GLUCOSE >1000 MG/DL (NEG); URINE KETONE 1+ (NEG); URINE LEUKOCYTE ESTERASE NEG (NEG); URINE NITRATE NEG (NEG); URINE PROTEIN NEG (NEG); URINE SPECIFIC GRAVITY 1.029 (1.003-1.035); URINE UROBILINOGEN 0.2 MG/DL (NEG)
[2017-03-22 22:30] LABS: CULTURE INDICATED? NO
[2017-03-22 23:09] LABS: ALBUMIN SERUM 4.2 g/dL (3.5-5.0); BILIRUBIN, DIRECT 0.1 mg/dL (0.0-0.2); BILIRUBIN,INDIRECT 0.7 mg/dL (0.0-0.9); BILIRUBIN,TOTAL 0.8 mg/dL (0.2-2.0); BUN/CREATININE RATIO 25.55; CALCIUM SERUM 10.5 mg/dL (8.4-10.2); CREATININE SERUM 0.9 mg/dL (0.6-1.4); GLOM FILT RATE Estimated 73.1 mL/min (>60); POTASSIUM 3.9 mmol/L (3.5-5.1); PROTEIN TOTAL SERUM 7.2 g/dL (6.0-8.3)
== END 2017-03-23 01:00 | disposition home or self-care (01) ==
LOC: CED 19:41
DX: R10.9 Unspecified abdominal pain (principal); R63.0 Anorexia; E11.65 Type 2 diabetes mellitus with hyperglycemia; I10 Essential (primary) hypertension; J44.9 Chronic obstructive pulmonary disease, unspecified; Z88.0 Allergy status to penicillin; Z88.2 Allergy status to sulfonamides; Z88.5 Allergy status to narcotic agent; Z79.899 Other long term (current) drug therapy; Z79.4 Long term (current) use of insulin
CPT/HCPCS: 36415; 51701; 74177; 80048; 80076; 81003; 82947; 83690; 85025; 96361; 96374; 99284; Q9967

== ENCOUNTER 2017-03-27 11:44 | Inpatient (IN) | payer MEDICARE, OTHER ==
--- NOTE | ~2017-03-27 | CO ---
Unit #: [id number] #: [id number] Patient: MARY JO KUHN [facility] [id number] [address] [address] [id number] I MR#: [id number] NAME: MARY JO KUHN ROOM: 239 Age: 76 Sex: F Admission Date: 03/27/2017 : 1940 Attending Physician: Kelly Pelaez M.D. Primary Care Physician: Kelly Pelaez M.D. Consultation Date: 03/29/2017 CONSULTATION REPORT HISTORY OF PRESENT ILLNESS Ms. Kuhn is a 76-year-old black female, who presented with failure to thrive, weight loss, abnormal uterine bleeding, and crampy abdominal pain, especially in the right lower quadrant. CT scan showed some abnormalities of her uterus consistent with possible malignancy. There was no other pathology in the abdomen seen for the GI tract according to the CT scan and ultrasound. She has had previous endoscopy of her stomach and colon 2-3 years ago according to the patient, which she said did not show any significant disease at that time. PHYSICAL EXAMINATION Her abdomen is soft and nontender with no peritoneal signs present. The patient is cachectic and noted to have protein-calorie malnutrition and deficits. IMPRESSION AND PLAN This patient probably does need to have upper and lower endoscopy again. She definitely needs to have a COMMUNITY HEALTH DIRECTOR consult. The scopes, we could do as an outpatient or we could do here in the facility depending on whether or not any other further evaluation needs to be done per COMMUNITY HEALTH DIRECTOR. We will follow this patient. Dictated by... Guru Patel/nolberto TD: 03/29/2017 07:01 JOB #: [id number] CONSULTATION REPORT Page 1 of 1 X Abdelrahman Perez MD X CONSULTATION REPORT
--- NOTE | ~2017-03-27 | US99 ---
[facility] A Service of [facility] RADIOLOGY TEXT RESULTS PATIENT: MARY JO BARKER LOCATION: C2A 239- : 42 UNIT #: [id number] AGE: [address]: Kelly Pelaez MD SEX: F ORDER DR: [id number] [facility] [address] [facility]. [place], [place] [address] [id number] I MR#: [id number] Acc #: [id number] NAME: MARY JO BARKER : 1940 SEX: F STUDY DATE/TIME: 03/27/2017 18:24 UNIT: C2 ROOM: 239 STUDY DESCRIPTION: US Pelvic Non-OB Ltd or FU Attending Physician: Kelly Pelaez M.D. Ordering Physician: Kelly Pelaez M.D. Primary Care Physician: Kelly Pelaez M.D. MEDICAL IMAGING REPORT This report is preliminary unless electronic signature is present EXAM Pelvic ultrasound. COMPARISON CT abdomen and pelvis with IV contrast on the same date. HISTORY The patient is a 76-year-old female with vaginal bleeding for 2 weeks. Postmenopausal state. Focal endometrial thickening is suspected on CT performed earlier today. FINDINGS Please note the ovaries are not seen on this exam. Transabdominal imaging only was performed. No free fluid is seen in the adnexal regions. At the uterine fundus there is a partly cystic appearing structure that measures approximately 3.7 cm x 4.3 cm x up to as much as 3.5 cm. This corresponds to the finding on CT. This could represent cystic degeneration of a uterine fibroid, but given postmenopausal bleeding, carcinoma cannot be excluded. It is uncertain if this structure is actually associated with endometrium or is within the wall of the uterus itself. IMPRESSION 1. Abnormal partly cystic appearing structure within the uterine fundus measuring up to approximately 3.8 cm x 4.3 cm x 3.5 cm. Given vaginal bleeding, this is concerning for carcinoma. It is uncertain if this is within the endometrium or within the wall of the uterus itself. WELL HEAD PUMPER consultation is recommended. 2. Please note that the ovaries are not seen on this transabdominal exam. No free fluid is seen in the pelvis. [facility] A Service of [facility] & [facility] RADIOLOGY TEXT RESULTS PATIENT: MARY JO BARKER LOCATION: [facility] 239-01 : 42 UNIT #: [id number] AGE: [address]: Kelly Pelaez MD SEX: F ORDER DR: Dictated by... Michael Hudson M.D. THIS IS AN ELECTRONICALLY VERIFIED REPORT Michael Hudson M.D. at 03/30/2017 6:22 PM BLM/victor manuel TD: 03/28/2017 11:37 JOB #: [id number] MEDICAL IMAGING REPORT Page 1 of 1 COPY
--- NOTE | ~2017-03-27 | CT2 ---
[facility] A Service of [facility] RADIOLOGY TEXT RESULTS PATIENT: MARY JO BARKER LOCATION: C2A 239-01 : 42 UNIT #: [id number] AGE: [address]: Kelly Pelaez MD SEX: F ORDER DR: [id number] [facility] [address] [facility]. [place], [place] [address] [id number] I MR#: [id number] Acc #: [id number] NAME: MARY JO BARKER : 1940 SEX: F STUDY DATE/TIME: 03/27/2017 19:53 UNIT: C2A ROOM: 239 STUDY DESCRIPTION: CT Abd and Pelv W Cont Attending Physician: Kelly Pelaez M.D. Ordering Physician: Kelly Pelaez M.D. Primary Care Physician: Kelly Pelaez M.D. MEDICAL IMAGING REPORT This report is preliminary unless electronic signature is present EXAM CT abdomen and pelvis with oral and IV contrast HISTORY Abdomen pain for 1 week. Vaginal bleeding. The CT exam was performed with one or more of the following radiation dose reduction techniques: automatic exposure control, adjustment of mA and/or kV according to patient size, and iterative reconstruction. FINDINGS CT abdomen and pelvis was performed with oral and IV contrast and is compared to CT 03/22/2017. CT abdomen Approximately 1 cm probable cyst or hemangioma in the medial right hepatic dome is stable. Emphysema in both lung bases. No biliary dilatation. Gallbladder, spleen, pancreas, and adrenal glands are unremarkable. Incidental small cysts in the lower poles of both kidneys. Small parenchymal calcification in the posterior mid right kidney. Normal caliber abdominal aorta. No bowel dilatation. CT pelvis Marked urinary bladder distension. Low-density focal distension of the endometrial canal within the uterine fundus, peripherally enhancing, and measuring 2.9 x 2.3 cm x 2.6 cm in AP, transverse and craniocaudal dimensions, corresponding to the same findings on CT 03/22/2017. FURNACE SETTER consultation is recommended. Uterus is atrophic. No adnexal mass is identified.. No free fluid. No bowel dilatation. IMPRESSION 1. Distension of the proximal endometrial canal in the uterine fundus is STS. [facility] A Service of [facility] & [facility] RADIOLOGY TEXT RESULTS PATIENT: MARY JO BARKER LOCATION: C2A 239-01 : 42 UNIT #: [id number] AGE: [address]: Kelly Pelaez MD SEX: F ORDER DR: stable compared to CT 03/22/2017. Peripherally enhancing fluid density collection within the uterine fundus measures 2.9 cm x 2.3 cm x 2.6 cm. FURNACE SETTER consultation recommended. There is also moderate urinary bladder distension. 2. No acute findings in the remainder of the abdomen or pelvis. Dictated by... Niko Rosenthal M.D. THIS IS AN ELECTRONICALLY VERIFIED REPORT Niko Rosenthal M.D. at 03/28/2017 11:48 PM SARTHAK/sandro TD: 03/28/2017 10:36 JOB #: [id number] MEDICAL IMAGING REPORT Page 1 of 1 COPY
--- NOTE | ~2017-03-27 | CO ---
Unit #: [id number] #: [id number] Patient: MARY JO BARKER [id number] [address] [place], [place] [address] [id number] MR#: [id number] NAME: MARY JO BARKER ROOM: 239 Age: 76 Sex: F Admission Date: 03/27/2017 : 1940 Attending Physician: Kelly Pelaez M.D. Primary Care Physician: Kelly Pelaez M.D. Consultation Date: 03/29/2017 CONSULTATION REPORT HISTORY OF PRESENT ILLNESS This is a 76-year-old lady with history of COPD, now presents with progressive fatigue. She is having pelvic pain. She is having progressive fatigue without any significantly worsening shortness of breath. The patient has a history of lower extremity DVT, and she has a history of factor V Leiden. She has history of pulmonary artery hypertension and is on chronic anticoagulation. The patient is having progressive shortness of breath and therefore we have been asked to see the patient for this issue. The patient is also having weight loss. She has uterine bleeding, crampy abdominal pain in the right lower quadrant. CT scan showed some abnormalities of the uterus with a possible endometrial carcinoma. No other pathology found in the abdomen. The patient has had previous endoscopy of the stomach and colon, which did not show any significant disease at that time. The patient's abdomen is soft, nontender. No peritoneal signs present. The patient is cachectic and appears to have malnutrition. PAST MEDICAL HISTORY Significant for COPD, history of atrial fibrillation, CVA, hypertension, diabetes, chronic respiratory failure, depression, anxiety. PAST SURGICAL HISTORY Significant for cardiac cath, breast cyst, EGD with esophageal dilatation. SOCIAL HISTORY The patient quit smoking in 1968. Denies alcohol or any illicit drugs. The patient currently lives in a longterm. She has not had tobacco for extended period of time. FAMILY HISTORY Noncontributory. ALLERGIES The patient is allergic to penicillin, sulfa, codeine, and clarithromycin. HOME MEDICATIONS Include Humalog, pioglitazone, Levemir sliding scale insulin. Actos, Brovana, Carafate, Lopressor, Risperdal, magnesium oxide, Colace, Pepcid, albuterol inhaler, Combivent inhaler, Tylenol p.r.n., Tessalon Perles, amiodarone, Megace, taper of p.o. prednisone, and Zestril. PHYSICAL EXAMINATION VITAL SIGNS: T-current 98.7, pulse 79, respiratory rate 20, blood pressure 129/77. Unit #: [id number] #: [id number] Patient: MARY JO BARKER CHEST: Shows decreased breath sounds bilaterally. CARDIOVASCULAR: Regular rate. No gallop. ABDOMEN: Soft, nontender, and nondistended. EXTREMITIES: Show no significant edema. DIAGNOSTIC STUDIES LABORATORY RESULTS: BUN and creatinine 8/0.4, bicarb 33. IMAGING STUDIES: Ultrasound pelvic shows a 3.7 x 4.3 cystic structure endometrial mass. This could be cystic degradation of uterine fibroid. It cannot be seen whether it is in the wall of the uterus or within the endometrium. ASSESSMENT AND PLAN 1. We are going to do treat her for COPD exacerbation. I am going to put her on scheduled budesonide. 2. She is going to be seen by WASH WORKER. 3. Diabetes mellitus. 4. The patient is going to continue her sildenafil citrate. I would continue antibiotics for a 4- to 5-day course and try to avoid systemic steroids unless necessary. Thank you very much. Please page me at [phone] if you have any questions. Dictated by... Toby Reyna M.D. PASTOR/nolberto TD: 03/31/2017 01:20 JOB #: [id number] CONSULTATION REPORT Page 1 of 1 X Aldo Reyna MD CONSULTATION REPORT
--- NOTE | ~2017-03-27 | DS ---
Unit #: [id number] #: [id number] Patient: MARY JO BARKER [id number] [address] [address] [id number] I MR#: [id number] NAME: MARY JO BARKER ROOM: 239 Age: 76 Sex: F Admission Date: 03/27/2017 : 1940 Discharge Date: 03/30/2017 Attending Physician: Kelly Pelaez M.D. Primary Care Physician: Kelly Pelaez M.D. DISCHARGE SUMMARY ADDENDUM I discussed this case with the patient's primary care physician, Dr. Kelly Pelaez, who was notified that the patient's refusal to be transferred to [facility] for gynecology evaluation and instead patient is being transferred to a SNU. Dr. Pelaez is willing to follow up on this issue with the patient. Dictated by... Duarte Akins M.D. OC/cf TD: 03/30/2017 21:03 JOB #: [id number] DISCHARGE SUMMARY Page 1 of 1 X Duarte Akins MD X DISCHARGE SUMMARY
--- NOTE | ~2017-03-27 | HP ---
Unit #: [id number] #: [id number] Patient: MARY JO KUHN [id number] [address] [address] [id number] I MR#: [id number] NAME: MARY JO KUHN ROOM: 239 Age: 76 Sex: F Admission Date: 03/27/2017 : 1940 Attending Physician: Kelly Pelaez M.D. Primary Care Physician: Kelly Pelaez M.D. HISTORY AND PHYSICAL ADMISSION DIAGNOSES 1. Abdominal pain. 2. Abnormal vaginal bleeding. 3. Diabetes. 4. History of CVA. 5. History of A-fib. 6. COPD. 7. Anxiety, depression and psych issues in the past. HISTORY OF PRESENT ILLNESS Ms. Kuhn is a 76-year-old -[place] female who was seen apparently by Dr. Pelaez in the office and directly admitted secondary to abdominal pain and vaginal bleeding. Patient complains of lower abdominal pain. Currently, she states she is pain free. Also has some abnormal vaginal bleeding. She denies any other symptoms except mild upper congestion. She does have a history of COPD. Denies any chest pain. Denies any headache, dizziness, syncope, fever, nausea, vomiting or diarrhea. Pain she describes as sharp, 6 to 8 out of 10. No alleviating or aggravating factors. Mostly it is lower abdominal pain. Again, without any radiation to any other parts of the abdomen. REVIEW OF SYSTEMS 12-point review of systems on this patient is basically negative except as above. PAST MEDICAL HISTORY Significant for: 1. History of A-fib. 2. CVA. 3. Hypertension. 4. Diabetes. 5. COPD. 6. Chronic respiratory failure. 7. Depression/anxiety. PAST SURGICAL HISTORY Significant for: 1. Cardiac cath. 2. Cyst removed from the breast. 3. EGD with esophageal dilation. SOCIAL HISTORY She quit smoking in 1968. Denies any alcohol or illicit drugs. Unit #: [id number] #: [id number] Patient: MARY JO KUHN FAMILY HISTORY Significant for cancer. ALLERGIES Allergic to penicillin and sulfa, codeine and clarithromycin. MEDICATIONS Current medications include: 1. Levemir. 2. Sliding scale insulin. 3. Actos. 4. NovoLog with meals. 5. Brovana inhaler. 6. Carafate. 7. Lopressor. 8. Risperdal. 9. Mag oxide. 10. Colace. 11. Pepcid. 12. Albuterol inhaler. 13. Combivent inhaler. 14. Tylenol p.r.n. 15. Tessalon Perles p.r.n. 16. Amiodarone 20 mg daily. 17. P.o. prednisone. 18. Megace. 19. Zestril. PHYSICAL EXAM GENERAL: The patient is a 76-year-old -[place]ib[place] female in no acute distress. VITAL SIGNS: BP 128/72, heart rate 77, respirations 16, temperature 99.3. HEENT: Head is atraumatic. Pupils equal, round, reactive to light and accommodation. Extraocular muscles intact. Oropharynx clean. NECK: Supple. No masses, no JVD, no bruits. CHEST: Diminished bilaterally with mild expiratory wheezing. CARDIOVASCULAR EXAM: S1, S2. No murmurs. ABDOMEN: Soft, nontender at the lower abdomen. No rebound. Bowel sounds are diminished. EXTREMITIES: Lower extremities without any cyanosis, clubbing or edema. NEUROLOGICAL: Patient without any focal deficits. Alert and oriented x3, answering questions appropriately. LABS AND DIAGNOSTICS LABORATORY: Chemistry significant for blood glucose 266, H and H 11.9 and 36, white count 8.0. IMAGING: CT abdomen and pelvis shows distention of the proximal endometrial canal in the uterine fundus which is stable compared to CT exam from March 22, 2017. It also shows some peripheral enhancing fluid density collection within the uterine fundus measuring 2.9 cm x 2.3 cm x 2.6 cm. Moderate urinary bladder distention. No acute findings in the remainder of the abdomen or pelvis. ASSESSMENT AND PLAN 1. Abnormal pain with the abnormal CT. Unfortunately, we don't have the INSIGHT DIRECTOR in this hospital. Will ask the General Surgery, Dr. Herrera, to come and evaluate. Consider possibly transferring her to [facility] Unit #: [id number] #: [id number] [facility]. 2. Abnormal vaginal bleeding as above. Monitor H and H, currently stable. 3. Diabetes, continue home meds. 4. History of CVA, continue home medication. 5. History of A-fib, not on any anticoagulation. Continue amiodarone. 6. History of anxiety and depression. Continue home meds. 7. History of COPD and currently upper congestion with some mild wheezing. Will ask patient's local sales manager, Dr. Reyna, to come on board. 8. GI and DVT prophylaxis. Continue Pepcid and put on SCDs. Avoid anticoagulation secondary to abnormal vaginal bleeding. Dictated by Duarte Akins M.D. OC/df TD: 03/29/2017 07:26 JOB #: [id number] HISTORY AND PHYSICAL Page 1 of 1 X Duarte Akins MD X HISTORY AND PHYSICAL
--- NOTE | ~2017-03-27 | DS ---
Unit #: [id number] #: [id number] Patient: MARY JO BARKER [id number] [address] [place], [place] [address] [id number] Genia MR#: [id number] NAME: MARY JO BARKER ROOM: 239 Age: 76 Sex: F Admission Date: 03/27/2017 : 1940 Discharge Date: 03/30/2017 Attending Physician: Kelly Pelaez M.D. Primary Care Physician: Kelly Pelaez M.D. DISCHARGE SUMMARY DISPOSITION Going to a retirement unit here at [facility]. DISCHARGE DIAGNOSES 1. Abdominal pain, status post Surgery evaluation. 2. Abnormal vaginal bleeding with the uterine mass concerning for a malignancy. Patient is refusing to be transferred to a different hospital for SANTA'S HELPER evaluation. I offered patient to be transferred to [facility] where I could have SANTA'S HELPER evaluation however patient is refusing and insisting to be discharged to retirement unit first for rehab and she would follow up with the SANTA'S HELPER as an outpatient. The patient's nurse, La, was present during our conversation. I also tried to call the patient's daughter, Avinash Morse, at [phone]. I have called this number 4 times, left a message, nobody answered, nobody returned the phone call. 3. Diabetes. 4. Chronic obstructive pulmonary disease. 5. History of atrial fibrillation. 6. Anxiety and depression. 7. History of cerebrovascular accident. 8. Hypertension. DISCHARGE MEDICATIONS 1. Albuterol sulfate nebulizer treatments q.4 hour p.r.n. for shortness of air/dyspnea. 2. Combivent inhaler q.i.d. 3. Pulmicort inhaler b.i.d. 4. Perforomist 1 puff inhaler daily. 5. Prednisone 2 mg p.o. b.i.d. 6. Amiodarone 200 mg daily. 7. Tylenol p.r.n. 8. Mag oxide 400 mg p.o. b.i.d. 9. Metformin 500 mg b.i.d. 10. Pioglitazone 15 mg daily. 11. Diflucan 200 mg p.o. daily. 12. Zyrtec 10 mg daily. 13. Megace 40 mg daily. 14. Risperdal 0.25 mg b.i.d. 15. Tessalon perles p.r.n. 16. Metoprolol 50 mg b.i.d. 17. Colace 100 mg b.i.d. 18. Lisinopril 10 mg q. day. 19. Lantus 20 units subcu q.a.m. 20. NovoLog 5 units subcu t.i.d. before meals. Unit #: [id number] #: [id number] Patient: MARY JO BARKER 21. Sliding scale insulin. 22. Pepcid 20 mg b.i.d. 23. Carafate 1 g p.o. t.i.d. 24. Ultram 50 mg p.o. q.6 h. p.r.n. LABS AND DIAGNOSTICS AND PROCEDURES ON THIS HOSPITAL STAY 1. Pelvic ultrasound showed an abnormal, patchy, cystic-appearing structure within the uterine fundus measuring up to approximately 3.8 cm x 4.3 cm x 3.5 cm. With the history of vaginal bleeding it is concerning for carcinoma. SANTA'S HELPER consultation is recommended. 2. This was followed with a CT abdomen and pelvis which showed distention of the proximal endometrial canal in the uterine fundus stable compared to CT from March 22, 2017 which showed peripherally enhancing fluid density collection within the uterine fundus measures 2.9 cm x 2.3 cm x 2.6 cm and again SANTA'S HELPER consultation was recommended. No acute findings in the remainder of the abdomen and pelvis. CONSULTS ON THIS HOSPITAL STAY 1. Dr. Perez, surgery. 2. Dr. Lauren Reyna, pulmonology. HISTORY OF PRESENT HOSPITAL STAY Please refer to H and P for initial presentation on this female which was done by me. ACTIVE PROBLEMS AND DIAGNOSES Abdominal pain, status post LSA evaluation. No surgical necessity at this point. Patient is comfortable. Pain is resolved. She is tolerating p.o. diet without any significant difficulty. Abnormal vaginal bleeding with a uterine mass concerning for carcinoma. Patient's H and H had been stable on this hospitalization. She came in with hemoglobin of 11.9. Last couple of days respectively her hemoglobin was 10.4 and 10.3. She shows no signs of active bleeding. No hemodynamically instability. No hypotension. In fact the patient had been hypertensive in here. Again had a lengthy discussion with the patient, was trying to transfer her to [facility] for SANTA'S HELPER evaluation however patent adamantly refuses the transfer. She, in fact, requested to be transferred to a retirement unit for rehab. I explained risks that she would be taking with this however patient again insisted to be transferred to a senior living first for the rehab and then she would seek attention with the SANTA'S HELPER from there. I have tried to reach out to the patient's daughter, Avinash Morse, on the phone number [phone]. Multiple attempts was made. I have even called her with my personal cellphone number however she is not answering and I was unable to relay the message to her. Diabetes, resume home meds. Resume insulin regime as above in the discharge summary. COPD, status post evaluation per primary pulmonology Dr. Lauren eRyna. Continue bronchodilators. History of afib. She has been off of the anticoagulation, likely secondary to a history of vaginal bleed. She cannot tell me when and why she was taken off of the anticoagulation however she was taken off anticoagulation. She is on afib with the rate control and the beta bryanna so continue that. Unit #: [id number] #: [id number] Patient: MARY JO BARKER History of anxiety/depression: Continue home meds. History of CVA. Dictated by... Duarte Akins M.D. OC/cf TD: 03/30/2017 20:26 JOB #: [id number] DISCHARGE SUMMARY Page 1 of 1 X Duarte Akins MD X DISCHARGE SUMMARY
[2017-03-27 16:51] LABS: HEMOGLOBIN 11.9 gm/dL (12.0-16.0); MEAN CELL VOLUME 81.9 FL (83-96); MEAN CORPUSCULAR HEMOGLOBIN 27.1 PG (28-34); MEAN CORPUSCULAR HGB CONC 33.1 g/dL (30-36); MEAN PLATELET VOLUME 7.9 FL (6.5-11.5); RED BLOOD COUNT 4.4 X10e (3.90-5.30); RED CELL DISTRIBUTION WIDTH 16.1 % (11.0-15.5)
[2017-03-27 17:19] LABS: ALBUMIN SERUM 3.5 g/dL (3.5-5.0); BILIRUBIN,TOTAL 0.3 mg/dL (0.2-2.0); BUN/CREATININE RATIO 26.66; CALCIUM SERUM 8.9 mg/dL (8.4-10.2); CREATININE SERUM 0.6 mg/dL (0.6-1.4); GLOM FILT RATE Estimated 104.1 mL/min (>60); POTASSIUM 3.2 mmol/L (3.5-5.1); PROTEIN TOTAL SERUM 6.5 g/dL (6.0-8.3)
[2017-03-27 23:02] LABS: URINE APPEARANCE CLEAR; URINE BILIRUBIN NEG (NEG); URINE BLOOD NEG (NEG); URINE COLOR YELLOW; URINE GLUCOSE >1000 MG/DL (NEG); URINE KETONE NEG (NEG); URINE LEUKOCYTE ESTERASE 2+ (NEG); URINE NITRATE NEG (NEG); URINE PH 6.5 (5-8); URINE PROTEIN NEG (NEG); URINE SPECIFIC GRAVITY 1.043 (1.003-1.035)
[2017-03-27 23:04] LABS: URBCS1 AUWI 0-2 /[HPF] (0-2); URINE BACTERIA AUWI NEG (NEGATIVE); URINE SQUAMOUS EPITHELIAL CELL OCC /[HPF]; UWBCS1 AUWI 50-100 (0-5)
[2017-03-28 10:45] LABS: CALCIUM SERUM 8.6 mg/dL (8.4-10.2); CREATININE SERUM 0.5 mg/dL (0.6-1.4); GLOM FILT RATE Estimated 110.5 mL/min (>60); POTASSIUM 3.9 mmol/L (3.5-5.1)
[2017-03-29 06:53] LABS: HEMOGLOBIN 10.4 gm/dL (12.0-16.0); MEAN CORPUSCULAR HEMOGLOBIN 26.7 PG (28-34); MEAN CORPUSCULAR HGB CONC 32.5 g/dL (30-36); RED BLOOD COUNT 3.9 X10e (3.90-5.30); RED CELL DISTRIBUTION WIDTH 15.7 % (11.0-15.5); WHITE BLOOD COUNT 11.3 X10e3 (4.0-10.5)
[2017-03-29 07:34] LABS: CALCIUM SERUM 8.9 mg/dL (8.4-10.2); CREATININE SERUM 0.4 mg/dL (0.6-1.4); GLOM FILT RATE Estimated 118.9 mL/min (>60); POTASSIUM 3.9 mmol/L (3.5-5.1)
[2017-03-30 05:41] LABS: BASOPHIL% 0.3 % (0-2.5); EOSINOPHIL# 0.2 X10e3 (0-0.7); EOSINOPHIL% 1.5 % (0.0-7.0); HEMATOCRIT 31.5 % (35.0-45.0); HEMOGLOBIN 10.3 gm/dL (12.0-16.0); LYMPHOCYTE# 2.4 X10e3 (1.0-3.5); LYMPHOCYTE% 20.8 % (17.0-45.0); MEAN CELL VOLUME 81.4 FL (83-96); MEAN CORPUSCULAR HEMOGLOBIN 26.6 PG (28-34); MEAN CORPUSCULAR HGB CONC 32.7 g/dL (30-36); MEAN PLATELET VOLUME 8.4 FL (6.5-11.5); MONOCYTE# 0.8 X10e3 (0-1.0); MONOCYTE% 7.2 % (3.0-12.0); NEUTROPHIL# 8.3 X10e3 (1.5-7.1); NEUTROPHIL% 70.2 % (40-75); PLATELET COUNT 296 X10e3 (140-420); RED BLOOD COUNT 3.87 X10e (3.90-5.30); RED CELL DISTRIBUTION WIDTH 15.6 % (11.0-15.5); WHITE BLOOD COUNT 11.8 X10e3 (4.0-10.5)
[2017-03-30 05:42] LABS: DIFF IND NO
== END 2017-03-30 23:30 | DRG 760 ==
LOC: UNDOADMIN 15:26 → C2A 15:26
PROVIDERS: Hospitalist; Physician Assistant Medical
DX: N93.9 Abnormal uterine and vaginal bleeding, unspecified (principal); J96.10 Chronic respiratory failure, unspecified whether with hypoxia or hypercapnia; E46 Unspecified protein-calorie malnutrition; I48.91 Unspecified atrial fibrillation; J44.9 Chronic obstructive pulmonary disease, unspecified; E11.9 Type 2 diabetes mellitus without complications; F41.9 Anxiety disorder, unspecified; F32.9 Major depressive disorder, single episode, unspecified; R10.9 Unspecified abdominal pain; Z86.73 Personal history of transient ischemic attack (TIA), and cerebral infarction without residual deficits; Z88.0 Allergy status to penicillin; Z88.2 Allergy status to sulfonamides; Z79.4 Long term (current) use of insulin; Z87.891 Personal history of nicotine dependence
CPT/HCPCS: 74177; 76857; 80048; 80053; 81003; 82150; 82947; 83690; 85025; 85027; 94640; 94760; 97110; 97116; 97161; 97165; 97530; 97535; G8978-GP; G8979-GP; G8987-GO; G8988-GO; J1815; Q9967